=== PATIENT | female | born 1975 | race Caucasian/White ===

== ENCOUNTER 2022-07-31 20:15 | Emergency (ER) | payer OTHER, SELFPAY ==
[2022-07-31 20:22] VITALS: BP 125/76; PULSE 94; RESP 16; TEMP 37.1; O2SAT 98
--- NOTE | 2022-07-31 22:01 | ED.GENADUL_ITS ---
Discharge Plan Disposition Patient Disposition: Home Discharge Details Chief Complaint: Laceration Clinical Impression: Finger laceration Primary Care Provider: Vincent Kay ED Provider: Laith Gonzalez Home Meds and New Rx's Prescriptions: No Action bupropion HCl 150 MG tablet extended release 24 hr 150 mg PO BID sumatriptan succinate [Imitrex] 50 MG tablet 50 mg PO DAILY PRN (Reason: Headache) Patient Comments: 03/06/2013: has not been taking. Med [place] [facility] [place]: Imitrex 50mg oral q8 PRN, Max dose in 24hours 200mg bisacodyl 10 MG suppository 10 mg RC DAILY PRN (Reason: Constipation) esomeprazole magnesium [Nexium] 40 MG capsule,delayed release(DR/EC) 40 mg PO DAILY@0730 loratadine 10 MG tablet 10 mg PO DAILY phenol [Cepastat] 14.5 MG lozenge 14.5 mg PO Q3H PRN acetaminophen [Tylenol] 325 MG tablet 650 mg PO Q4H Patient Comments: 03/06/2013: [facility] [place] medication sheet as med ordered as: 1000 mg po q8 hours scheduled. gabapentin [Neurontin] 400 MG capsule 800 mg PO HS Qty: 30 0RF gabapentin [Neurontin] 400 MG capsule 400 mg PO BID@0800,1200 Qty: 60 0RF citalopram 20 MG tablet 20 mg PO DAILY Qty: 30 0RF oxycodone 5 MG tablet 5 mg PO Q6H PRN PRNQty: 120 0RF enoxaparin [Lovenox] 40 MG/0.4 ML syringe 40 mg Sub-Q Q24H Qty: 30 0RF polyethylene glycol 3350 17 GM powder in packet 17 g PO DAILY PRNQty: 30 0RF sennosides-docusate sodium [Senna with Docusate Sodium] 1 EACH tablet 1 - 4 ea PO BID Qty: 240 0RF diltiazem HCl [Cardizem] 60 MG tablet 60 mg PO BID Qty: 60 0RF diazepam [Valium] 5 MG tablet 5 mg PO Q6H PRN (Reason: Anxiety) Qty: 120 0RF oxycodone [OxyContin] 10 MG tablet,oral only,ext.rel.12 hr 10 mg PO BID Qty: 60 0RF hydrocodone-chlorpheniramine 1 ML suspension,extended rel 12 hr 5 ml PO BID PRN PRNQty: 60 0RF prednisone 20 MG tablet 40 mg PO DAILY Qty: 10 0RF levofloxacin 750 MG tablet 750 mg PO DAILY 7 Days 0RF metronidazole 500 MG tablet 500 mg PO TID 7 Days 0RF ondansetron 4 MG tablet,disintegrating 4 mg PO Q8H PRN PRNQty: 20 0RF oxycodone-acetaminophen 1 TAB tablet 1 tab PO Q6H PRN PRNQty: 7 0RF Discharge Instructions Instructions: Finger Laceration (ED) Additional Instructions: Please keep wound clean and dry. Please return to the emergency department for any worsening symptoms Medical Decision Making 47-year-old female sustained laceration to distal aspect of left index finger cutting a cooked ham, hemostatic no foreign body, clean linear, neurovascular exam of limb intact, tendon exam intact with full flexion and extension, wound as open up when fingers flexed for this reason I will anesthetize with ring block and closed primarily with simple interrupted observable sutures. No evidence of neurovascular injury or tendon involvement. Given clean knife and cooked meat will not initiate empiric antibiotics will give return precautions for infectious symptoms 22: 48 patient resting comfortably no acute distress. Wound anesthetized and cleaned thoroughly with sterile normal saline, 3 x 4-0 Vicryl simple interrupted sutures and Steri-Strips applied to wound. Wound care instructions and return precautions given HPI General Date/Time Provider Initiated Documentation: 07/31/22 20:38 . HPI Narrative: 47-year-old female presents after sustaining a laceration to her left index finger while cutting a cooked ham with a knife. Pain and bleeding to distal aspect of finger. Patient believes her last tetanus booster was 8 to 9 years ago Related Data Home Medications Medication Instructions Recorded Confirmed bupropion HCl 150 mg 24 hr tablet, 150 mg PO BID 02/13/13 03/06/13 extended release sumatriptan succinate 50 mg tablet 50 mg PO DAILY PRN Headache 02/13/13 03/06/13 (Imitrex) bisacodyl 10 mg rectal suppository 10 mg RC DAILY PRN Constipation 02/22/13 03/06/13 esomeprazole magnesium 40 mg 40 mg PO DAILY@0730 02/22/13 03/06/13 capsule,delayed release (Nexium) loratadine 10 mg tablet 10 mg PO DAILY 02/22/13 03/06/13 phenol 14.5 mg lozenges (Cepastat) 14.5 mg PO Q3H PRN 02/22/13 03/06/13 acetaminophen 325 mg tablet 650 mg PO Q4H 02/23/13 03/06/13 (Tylenol) citalopram 20 mg tablet 20 mg PO DAILY ##30 03/15/13 diazepam 5 mg tablet (Valium) 5 mg PO Q6H PRN Anxiety ##120 03/15/13 diltiazem HCl 60 mg tablet 60 mg PO BID ##60 03/15/13 (Cardizem) enoxaparin 40 mg/0.4 mL 40 mg (0.4 mL) subcut Q24H ##30 03/15/13 subcutaneous syringe (Lovenox) gabapentin 400 mg capsule 400 mg PO BID@0800,1200 ##60 03/15/13 (Neurontin) gabapentin 400 mg capsule 800 mg PO HS ##30 03/15/13 (Neurontin) oxycodone 10 mg tablet,crush 10 mg PO BID ##60 03/15/13 resistant,extended release 12 hr (OxyContin) oxycodone 5 mg tablet 5 mg PO Q6H PRN PRN ##120 03/15/13 polyethylene glycol 3350 17 gram 17 g PO DAILY PRN ##30 03/15/13 oral powder packet sennosides 8.6 mg-docusate sodium 1 - 4 ea PO BID ##240 03/15/13 50 mg tablet (Senna with Docusate Sodium) hydrocodone 10 mg-chlorpheniramine 5 ml PO BID PRN PRN #60 mL 01/09/16 8 mg/5 mL oral susp extend.rel 12hr prednisone 20 mg tablet 40 mg PO DAILY ##10 01/09/16 levofloxacin 750 mg tablet 750 mg PO DAILY 7 days 02/19/16 metronidazole 500 mg tablet 500 mg PO TID 7 days 02/19/16 ondansetron 4 mg disintegrating 4 mg PO Q8H PRN PRN ##20 02/19/16 tablet oxycodone-acetaminophen 5 mg-325 1 tab PO Q6H PRN PRN #7 tabs 02/19/16 mg tablet Previous Rx's Medication Instructions Recorded citalopram 20 mg tablet 20 mg PO DAILY ##30 03/15/13 diazepam 5 mg tablet (Valium) 5 mg PO Q6H PRN Anxiety ##120 03/15/13 diltiazem HCl 60 mg tablet 60 mg PO BID ##60 03/15/13 (Cardizem) enoxaparin 40 mg/0.4 mL 40 mg (0.4 mL) subcut Q24H ##30 03/15/13 subcutaneous syringe (Lovenox) gabapentin 400 mg capsule 400 mg PO BID@0800,1200 ##60 03/15/13 (Neurontin) gabapentin 400 mg capsule 800 mg PO HS ##30 03/15/13 (Neurontin) oxycodone 10 mg tablet,crush 10 mg PO BID ##60 03/15/13 resistant,extended release 12 hr (OxyContin) oxycodone 5 mg tablet 5 mg PO Q6H PRN PRN ##120 03/15/13 polyethylene glycol 3350 17 gram 17 g PO DAILY PRN ##30 03/15/13 oral powder packet sennosides 8.6 mg-docusate sodium 1 - 4 ea PO BID ##240 03/15/13 50 mg tablet (Senna with Docusate Sodium) hydrocodone 10 mg-chlorpheniramine 5 ml PO BID PRN PRN #60 mL 01/09/16 8 mg/5 mL oral susp extend.rel 12hr prednisone 20 mg tablet 40 mg PO DAILY ##10 01/09/16 levofloxacin 750 mg tablet 750 mg PO DAILY 7 days 02/19/16 metronidazole 500 mg tablet 500 mg PO TID 7 days 02/19/16 ondansetron 4 mg disintegrating 4 mg PO Q8H PRN PRN ##20 02/19/16 tablet oxycodone-acetaminophen 5 mg-325 1 tab PO Q6H PRN PRN #7 tabs 02/19/16 mg tablet Allergies Allergy/AdvReac Type Severity Reaction Status Date / Time No Known Allergies Allergy Unverified 07/31/22 20:29 General Stated Complaint: Laceration NAJMA: 4 Review of Systems Narrative: Review of Systems Constitutional: negative Eyes: negative ENT: negative Cardiovascular: negative Respiratory: negative Gastrointestinal: negative : negative Musculoskeletal: negative Skin: Finger laceration Neurologic: negative Psych: negative PFSH All Active Problems (Updated 07/31/22 @ 22:41 by Laith Gonzalez MD) Physical medicine and rehabilitation procedures (Acute) Aftercare for healing traumatic fracture (Acute) Bilateral sacral fracture. Finger laceration (Acute) Social History Smoking/Tobacco Use Status: Current every day Smoking risk assessment performed?: Yes Drug use: Never Do you feel safe in your relationship?: Yes Exam Narrative Exam Narrative: Physical Examination General: alert, awake, cooperative, resting comfortably, no acute distress Extremities: 2 cm linear clean laceration to ulnar aspect of second digit of left hand, nongaping, no nailbed involvement appreciated, flexion both proximal and distal intact, extension intact, sensation median radial and ulnar nerve distribution intact warm well perfused Course Vital Signs Vital signs: Vital Signs Temperature 37.1 C 07/31/22 20:22 Pulse 94 H 07/31/22 20:22 Respiratory Rate 16 07/31/22 20:22 Blood Pressure 125/76 07/31/22 20:22 Pulse Oximetry 98 07/31/22 20:22 Temperature 37.1 C 07/31/22 20:22 Pulse 94 H 07/31/22 20:22 Respiratory Rate 16 07/31/22 20:22 Respiratory Effort Normal 07/31/22 20:27 Blood Pressure 125/76 07/31/22 20:22 Blood Pressure Position Sitting 07/31/22 20:22 Pulse Oximetry 98 07/31/22 20:22 Oxygen Delivery Method Room Air 07/31/22 20:22 Oxygen Flow Rate 0 07/31/22 20:22 Pain Level 4 07/31/22 20:22
== END 2022-07-31 22:54 | disposition home or self-care (01) ==
PROVIDERS: Emergency Provider Emergency Medicine; PCP Specialist/Technologist Athletic Trainer
DX: S61.211A Laceration without foreign body of left index finger without damage to nail, initial encounter (principal); W26.0XXA Contact with knife, initial encounter
CPT/HCPCS: 12001

== ENCOUNTER 2023-10-02 12:52 | Outpatient (REF) | payer OTHER, SELFPAY ==
[2023-10-02 15:20] LABS: Absolute Basophil Count 0.02 10^3/uL (0.0-0.2); Absolute Eosinophil Count 0.11 10^3/uL (0.0-0.7); Absolute Lymphocyte Count 1.52 10^3/uL (1.2-3.4); Absolute Monocyte Count 0.29 10^3/uL (0.1-0.8); Absolute Neutrophil Count 4.45 10^3/uL (1.2-6.7); Basophils % 0.3 %; Eosinophils % 1.7 %; HCT 37.5 % (36.0-46.0); HGB 12.7 g/dL (11.2-15.7); Lymphocytes % 23.8 %; MCH 30.2 pg (27.0-33.0); MCHC 33.9 % (32.0-36.0); MCV 89 fL (80-95); MPV 9.7 fL (8.0-11.0); Monocytes % 4.5 %; Neutrophils % 69.7 %; Platelet Count 313 10^3/uL (130-400); RBC 4.21 10^6/uL (3.93-5.22); RDW 12.4 % (11.7-14.6); RDW-SD 40.2 fL; WBC 6.39 10^3/uL (4.4-10.8)
[2023-10-02 16:34] LABS: ALT 24 U/L (14-59); AST 16 U/L (15-37); Albumin 3.8 g/dL (3.4-5.0); Alkaline Phosphatase 84 U/L (46-116); Anion Gap 7.5 mmol/L (3-11); BUN 10 mg/dL (7-18); Bilirubin, Total 0.27 mg/dL (0.2-1.0); CO2 27.5 mmol/L (21.0-32.0); CREATININE 0.7 mg/dL (0.55-1.02); Calcium 8.8 mg/dL (8.5-10.1); Calculated LDL 112 mg/dL (<100); Chloride 104 mmol/L (98-107); Cholesterol 188 mg/dL (<200); Estimated GFR 107.95 (mL/min/1.73m2); Glucose 91 mg/dL (74-106); HDL Cholesterol 66 mg/dL (40-60); Potassium 3.8 mmol/L (3.5-5.1); Sodium 139 mmol/L (136-145); TSH (W/Ref FT4) 1.31 uIU/mL (0.36-3.74); Total Protein 7.6 g/dL (6.4-8.2); Triglyceride 52 mg/dL (<150); Vitamin D 25 Total 25.3 ng/mL (30-100)
[2023-10-02 17:52] LABS: Hemoglobin A1C 5.1 % (<5.7)
[2023-10-03 09:57] LABS: Hepatitis C Ab w Rflx HCV PCR Negative (Negative)
[2023-10-03 10:12] LABS: HIV-1/2 Ag & Ab Screen Negative (Negative)
== END 2023-10-02 12:53 | disposition home or self-care (01) ==
LOC: NCHCN 12:52
PROVIDERS: PCP Nurse Practitioner Family; Visit Provider Nurse Practitioner Family
DX: Z13.6 Encounter for screening for cardiovascular disorders (principal); F41.9 Anxiety disorder, unspecified; Z13.1 Encounter for screening for diabetes mellitus
CPT/HCPCS: 80053; 80061; 82306; 86803; 87389; 83036; 84443; 85025

== ENCOUNTER 2023-12-25 14:49 | Outpatient (REF) | payer MEDICARE, SELFPAY ==
--- NOTE | 2023-12-25 08:30 | PAPFT_PTH ---
PATIENT: Lindsey Walker LOC: [facility] U#:[id number] AGE/SX: 48/F ROOM: RE12/25/[address]: Allegra El : 1975 BED: DIS: 12/25/2023 SPEC #: [id number] RECD: 12/25/23 18:00 STATUS: ALEXIS REAlyssa #: [id number] ALFREDO: 12/25/23 08:[address]: Allegra El DEPT: [facility] Cytology RECD BY: Courtney Shelton Tissues: 1 - CX/ENDOCX FOR PAP SMEARS Procedures: PAP THIN PREP/UVM Screening HPV DNA PROBE Comments: [id number] (HPV 16 & 18/45)
--- OUTSIDE RECORDS SUMMARY | 2023-12-25 15:09 | XMS_ITS | Encounter Summary ---
Author Organization [facility] Address [facility] [place] [address] Care Team Providers Care Order Processing Manager Name Role Phone Norma Ortiz Primary Care Provider [phone]- [phone] Encounter Details Date Type Department Care Team (Late st Contact Info) Description 05/26/2013 External Results XRay at [address] [place] [address] Provider, Scanning Social History Tobacco Use Types Packs/Day Years Used Date Smoking Tobacco: Former Cigarettes Q uit: 03/04/1993 Smokeless Tobacco: Never Alcohol Use Standard Drinks/Week Comments No 0 (1 standard drink = 0.6 oz pur e alcohol) Sex and Gender Information Value Date Recorded Sex Assigned at Not on file Gender Identity Not on file Sexual Orientation Not on file documented as of this encounter Plan of Treatment Not on file documented as of this encounter Procedures Procedure Name Priority Date/Time Associated Diagnosis Comments DIAGNOSTIC RADIOLOGY SCAN Routine 05/23/2013 documented in this encounter Results * Scan Doc: Diagnostic Radiology (05/23/2013) Anatomical Region Laterality Modality Other Scanning Provider MEDIA MGR SCAN EXT O RDR/RSLT documented in this encounter Visit Diagnoses Not on filedocumented in this encounter Care Teams Order Processing Manager Relationship Specialty Start Date End Date Norma Ortiz CDE NUTRITION [address] [place] [address] PCP - General 03/11/13 06/13/13 documented as of this encounter
--- OUTSIDE RECORDS SUMMARY | 2023-12-25 15:09 | XMS_ITS | Continuity of Care Document ---
Author Organization [facility] Address [address] [place] [address] Care Team Providers Care Pharmacist Name Role Phone ANNE MARIEELISE TANK CLEANING SUPERVISOR-BC, ESTEFANIA Primary Care Physic anamika Encounter [facility] FIN NBR [id number] Date(s): 11/21/23 - 11/21/[address] [address] Discharge Disposition: Home Allergies, Adverse Reactions, Alerts Substance Criticality Severity Reaction Reaction Severity Status CeleXA Low criticality Mild Crying Acti ve Assessment and Plan Future Appointments Future Scheduled Tests Radiology* MG Mammo Screening Bilateral 11/07/23 * XR Barium Swallow 11/21/23 Immunizations Given and Recorded Vaccine Date Status Refusal Reason SARS-COV-2 (COVID-19) vaccine, unspecifi 12/25/20 Recorded SARS-COV-2 (COVID-19) vaccine, unspecifi 12/04/20 Recorded Td(adult) unspecified formulation 05/10/17 Recorde d Medications Abilify 2 mg oral tablet 2 mg = 1 tab, Oral, Daily, # 30 tab, 0 Refill(s) Start Date: 04/04/23 Status: Ordered amitriptyline 100 mg oral tablet 100 mg = 1 tab, Oral, every night at bedtime, 0 Refill(s) Start Date: 04/03/23 Status: Ordered cetirizine 10 mg =, Oral, Daily, 0 Refill(s) Start Date: 04/03/23 Status: Ordered escitalopram 20 mg =, Oral, Daily, 0 Refill(s) Start Date: 04/03/23 Status: Ordered gabapentin 300 mg oral capsule 300 mg = 1 cap, Oral, QID, 0 Refill(s) Start Date: 04/03/23 Status: Ordered pantoprazole 40 mg oral delayed release tablet 40 mg = 1 tab, Oral, Daily, # 30 tab, 0 Refill(s) Start Date: 11/21/23 Status: Ordered SUMAtriptan 100 mg oral tablet 100 mg = 1 tab, Oral, As Directed, 0 Refill(s) Start Date: 04/03/23 Status: Ordered traZODone 50 mg oral tablet 50 mg = 1 tab, Oral, TID, # 270 tab, 0 Refill(s) Start Date: 11/21/23 Status: Ordered Problem List Condition Confirmation Course Effective Dates Status Health Status Informant 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 Chronic constipation Confirmed Active Cyst of Bartholin's duct Confirmed Active Dysphagia Confirmed Active Family history of colon cancer in mother Confirmed Active Gastroesophageal reflux disease without esophagitis Confirmed Active Pyrosis Confirmed Active Pain in joint of right hip Confirmed Active Hyperpigmentation of skin Confirmed Active Other idiopathic peripheral autonomic neuropathy Confirmed Active Insomnia Confirmed Active Migraine Confirmed Active Obstructive sleep apnea Confirmed Active Open fracture of pelvis Confirmed Active Pain of right shoulder region Confirmed Active Palpitations Confirmed Active Encounter for routine adult health examination Confirmed Active Colon cancer screening Confirmed Active Procedures Procedure Date Related Diagnosis Body Site Status Laparoscopic Cholecystectomy 07/26/15 Completed Arthroscopy of Left shoulder 04/2010 Completed 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 2History of two hiatus hernia repair surgeries Social History Social History Type Response Tobacco Current everyday tob acco user Tobacco Use:. 35 year(s). Total pack years: 29. Started age 15.0 Years. Patient reports current use of electronic cigarettes Smokeless Tobacco use:. Previous treatment: Counseling. Sex Sex Representation Female (finding) Patient Care team information Care Team Personnel Name: ESTEFANIA DIAZ Position: No Access Member Role: Primary Care Physician Address: [address] [place] [address]- [place] Care Team Related Persons Name: TIFFANY ISLAS Insurance Providers Guarantor name: MUNDO ISLAS Health Plan Information #: 1 Payer: [employer] Real-Time Member Number: NA Policy Number: NA Health Plan Information #: 2 Payer: [facility] Member Number: NA Policy Number: NA
--- OUTSIDE RECORDS SUMMARY | 2023-12-25 15:09 | XMS_ITS | Encounter Summary ---
[place] [address] Care Team Providers Care Fuel Cell Technician Name Role Phone Norma Ortiz Primary Care Provider [phone]- [phone] Reason for Visit * Reason Onset Date Comments Medication Refill 05/17/2013 Encounter Details Date Type Department Care Team (Late st Contact Info) Description 05/17/2013 [place] [address] Howard Gil PA [address] [place] [address] Sacral pain (Primary Dx); Fatigue fracture of vertebra of sacral and sacrococcygeal region with routine healing Social History Tobacco Use Types Packs/Day Years Used Date Smoking Tobacco: Former Cigarettes Q uit: 03/04/1993 Smokeless Tobacco: Never Alcohol Use Standard Drinks/Week Comments No 0 (1 standard drink = 0.6 oz pur e alcohol) Sex and Gender Information Value Date Recorded Sex Assigned at Not on file Gender Identity Not on file Sexual Orientation Not on file documented as of this encounter Miscellaneous Notes * Telephone Encounter - Marina Alvarez RN - 05/17/2013 2:51 PM EST Telephone call Patient called to request refill on the OxyContin and Oxycodone. She saw her PCP today who is not going to pick out hand pain management. Plan last visit was to wean from the OxyContin 1 po bid x 2 weeks then 1 po daily for 2 weeks then stop. Her pharmacy ( [facility])would not accept the prescription as written and requested new rx for the 1 tablet once a day for 2 weeks, then stop portion. New rx done for the OxyContin and refill done for the Oxycodone. She will work to wean down on the Oxycontin and has had success with the Neurontin. Next RX Oxycodone will be for 80 pills for 7-10 days. documented in this encounter Plan of Treatment Not on file documented as of this encounter Visit Diagnoses Diagnosis Sacral pain- Primary Disorders of sacrum Fatigue fracture of vertebra of sacral and sacrococcygeal region with routine healing Other orthopedic aftercare documented in this encounter Care Teams Fuel Cell Technician Relationship Specialty Start Date End Date Norma Ortiz CDE NUTRITION [address] [place] [address] PCP - General 03/11/13 06/13/13 documented as of this encounter
--- OUTSIDE RECORDS SUMMARY | 2023-12-25 15:09 | XMS_ITS | Continuity of Care Document ---
Author Organization [facility] Address [address] [place] [address] Care Team Providers Care Glass Silverer Name Role Phone DARIAN FARIAS-BC, ESTEFANIA Primary Care Physic anamika Encounter [facility] FIN NBR [id number] Date(s): 09/05/23 - 09/05/23 [facility] [address] [place], [place] [address] Discharge Disposition: Home Allergies, Adverse Reactions, Alerts Substance Reaction Severity Status CeleXA Crying Mild Active Assessment and Plan Future Scheduled Tests Radiology* MRI Shoulder w/o Contrast Right 09/05/23 Medications Abilify 2 mg oral tablet 2 [...] 0 Refill(s) Start Date: 04/03/23 Status: Ordered omeprazole 40 mg oral delayed release capsule 40 mg = 1 cap, Oral, Daily, 0 Refill(s) Start Date: 04/03/23 Status: Ordered SUMAtriptan 100 mg oral tablet 100 mg = 1 tab, Oral, As Directed, 0 Refill(s) Start Date: 04/03/23 Status: Ordered Procedures Procedure Date Related Diagnosis Body Site Status Laparoscopic Cholecystectomy 07/26/15 Completed Arthroscopy of Left shoulder 04/2010 Completed 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 Previous treatment: Counseling. Sex Patient Care team information Care Team Personnel Name: ESTEFANIA DIAZ Position: No Access Member Role: Primary Care Physician Address: Address: [address] [place] [address]- Care Team Related Persons Name: TIFFANY ISLAS Address: Home
--- OUTSIDE RECORDS SUMMARY | 2023-12-25 15:09 | XMS_ITS | Continuity of Care Document ---
Author Organization [facility] Address [address] [place] [id number] Care Team Providers Care Regulatory Affairs Strategy Specialist Name Role Phone DARIAN AUTO SERVICE REPRESENTATIVE-BCESTEFANIA Primary Care Physic anamika Encounter [facility] FIN NBR [id number] Date(s): 04/04/23 - 04/04/[address] [address]- [place] Encounter Diagnosis Pain in right shoulder(Final) - Discharge Disposition: Home or Self Care Attending Physician: Radha Dougherty APRN Admitting Physician: Radha Dougherty APRN Referring Physician: Radha Dougherty APRN Allergies, Adverse Reactions, Alerts Substance Reaction Severity Status CeleXA Crying Mild Active Assessment and Plan Future Scheduled Tests Radiology* MRI Shoulder w/o Contrast Right 04/04/23 Medications Abilify 2 mg oral tablet 2 [...] 2History of two hiatus hernia repair surgeries Results Radiology Reports * Exam Date Time Procedure Performing Provider Status 04/04/23 9:01 AM XR Shoulder Complete 2+ Views Right Kevon Rhodes; David (Verified) Notes: (XR Shoulder Complete 2+ Views Right) Reason For Exam: Right shoulder pain XR Shoulder Complete 2+ Views Right EXAM DESCRIPTION: XR Shoulder Complete 2+ Views Right 04/04/2023 INDICATION: RIGHT SHOULDER PAIN COMPARISON: None FINDINGS: No acute fracture, dislocation or bone destructive process. Joint spaces are maintained. No radiographic foreign bodies are seen. IMPRESSION: 1. No acute fracture, dislocation or bone destructive process. JOB #: [id number] Final Signed by: Kiko Franco MD Signed (Electronic Signature): 04/04/2023 9:07 am Social History Social History Type Response Tobacco Current everyday tob acco user Tobacco Use:. 33 year(s). Total pack years: 29. Started age 15.0 Years. Patient reports current use of electronic cigarettes Smokeless Tobacco use:. Previous treatment: Counseling. Sex Patient Care team information Care Team Personnel Name: ESTEFANIA DIAZ Position: No Access Member Role: Primary Care Physician Address: Address: [facility] [address] [facility] [address] [place] [address]- Care Team Related Persons Name: TIFFANY ISLAS
--- OUTSIDE RECORDS SUMMARY | 2023-12-25 15:09 | XMS_ITS | Encounter Summary ---
Author Organization [facility] Address [facility] [place] [address] Care Team Providers Care Machine Zipper Trimmer Name Role Phone Norma Ortiz Primary Care Provider +1- [phone] Encounter Details Date Type Department Care Team (Late st Contact Info) Description 05/23/2013 Orders [place] [address] Yogesh Bender MD [facility] [place] [address] Social History Tobacco Use Types Packs/Day Years [...] as of this encounter Plan of Treatment Pending Results Name Type Priority Associated Diagnoses Date /Time Film Library- Storage only DX Lower Extremity Imaging Routine 05/23/19 14 8:49 AM EST documented as of this encounter Visit Diagnoses Not on filedocumented in this encounter Care Teams Machine Zipper Trimmer Relationship Specialty Start Date End Date Norma Ortiz CDE [address] [address] PCP - General 03/11/13 06/13/13 documented as of this encounter
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
--- OUTSIDE RECORDS SUMMARY | 2023-12-25 15:09 | XMS_ITS | Encounter Summary ---
Author Organization [facility] [place] [address] Care Team Providers Care Traffic Maintenance Supervisor Name Role Phone Norma Ortiz Primary Care Provider [phone] Encounter Details Date Type Department Care Team (Late st Contact Info) Description 06/04/2013 Telephone [place] [id number] Yogesh Bender MD [facility] [place] [address] Social History Tobacco Use Types Packs/Day Years [...] encounter Miscellaneous Notes * Telephone Encounter - Mahnaz Mayberry LPN - 06/05/2013 3:21 PM EDT HERRERA Watts returned the call. He states that he has the faxed copies of the claims from 04/10/13 andfrom 05/27/13. I was unable to make any statements about the patient's medical condition after 04/08/13 because she chose not to come to her appt on 05/20/13. * Telephone Encounter - Mahnaz Mayberry LPN - 06/05/2013 12:55 PM EDT The patient's call was returned. She states that she has had multiple calls with someone in orthopedics, she cannot remember her name. The patient states that it was her idea to begin getting her narcotics from her PCP; however, her PCP would not prescribe them to her, and therefore she had to drive here to machine operator picker her medications a couple of Fridays ago. Additionally, she states that despite her best efforts she was never able to get the x-rays she asked for or the results of her x-rays. The patient is now unable to receive her short-term disability because she was told not to come to her appt on 05/20/13. She was assured that this issue will be resolved and was asked for the name and number of her short term disability agent, Kristofer Watts, fax [phone], client #[id number]. A message wasleft for Kristofer Watts to call and clarify the claim. * Telephone Encounter - Roxane Jeff - 06/05/2013 12:29 PM EDT Patient returned Wiliam's call, she would like a call back at [phone]. * Telephone Encounter - Mahnaz Mayberry LPN - 06/04/2013 9:41 AM EDT The patient's call was returned. Message left for the patient to call, and explain more clearly theissues she is having with disability and xrays. * Telephone Encounter - Roxane Jeff - 06/04/2013 9:29 AM EDT Patient called she would like to speak with Dr. Bender or nurse regarding the issues she is having with her disability and the xrays she had. She stated that she was told she did not have to come to 05/20/13 appointment and is upset that it now shows as a no show. She would like someone to call derrek to discuss. Please call [phone]. documented in this encounter Plan of Treatment Not on file documented as of this encounter Visit Diagnoses Not on filedocumented in this encounter Care Teams Traffic Maintenance Supervisor Relationship Specialty Start Date End Date Norma Ortiz, ADEN [address] [address] PCP - General 03/11/13 06/13/13 documented as of this encounter
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
--- OUTSIDE RECORDS SUMMARY | 2023-12-25 15:09 | XMS_ITS | Continuity of Care Document ---
Author Organization [facility] Ambulatory Clinics Address [address] [place] [address] Care Team Providers Care Irrigation Equipment Mechanic Name Role Phone ESTEFANIA DIAZ Primary Care Physic naamika Encounter [facility] NBR [id number] Date(s): 04/04/23 - 04/04/23 [facility] Ambulatory Clinics [address] [place] [address]- Encounter Diagnosis Injury of right rotator cuff(Discharge Diagnosis) - 04/04/23 Discharge Disposition: Home or Self Care Attending Physician: Radha Dougherty APRN Referring Physician: ESTEFANIA DIAZ Allergies, Adverse Reactions, Alerts Substance Reaction Severity [...] Most recent to oldest [Reference Range]: 1 Peripheral Pulse Rate [60-100 bpm] 70 bp m (04/04/23 9:10 AM) Blood Pressure [90-140/60-90 mmHg] 118/6 8mmHg (04/04/23 9:10 AM) Mean Arterial Pressure, Cuff [70-110 mmH g] 85 mmHg (04/04/23 9:10 AM) Weight 77.56 kg (04/04/23 9:10 AM) Weight Measured (lbs) 170.99 lb (04/04/23 9:10 AM) Weight Dosing 77.560 kg (04/04/23 9:10 AM) Height 177.80 cm (04/04/23 9:10 AM) Height/Length Measured (inches) 70 inch (04/04/23 9:10 AM) BSA Measured 1.96 m2 (04/04/23 9:10 AM) Body Mass Index 24.53 kg/m2 (04/04/23 9:10 AM) Social History Social History Type Response Tobacco Current everyday tob acco user Tobacco Use:. 33 year(s). Total pack years: 29. Started age 15.0 Years. Patient reports current use of electronic cigarettes Smokeless Tobacco use:. Previous treatment: Counseling. Sex Physician Outpatient Note * Radha Dougherty, SUPERVISOR OF OFFICIALS: PERFORM Event Display: Office Clinic Note Physician Authored Date: [id number] MUNDO ISLAS :1975 Age:47 years Sex:Female Visit Date:04/04/2023 Primary Care Physician: ESTEFANIA DIAZ Chief Complaint Right shoulder pain History of Present Illness Mundo is a very pleasant 47 year old female who presents for evaluation of chronic right shoulder pain. She states 13 years ago she had a slip and fall resulting in bilateral shoulder pain. Her left shoulder had a subsequent RTC repair by Dr. Damon with plans for right shoulder intervention that never happened. Since that time she has had continued pain with weakness and decreased ROM most severely progressed without new injury over the past year. She can no longer lift a gallon of milk. She has been on crutches since 2014, but now only uses a crutch on the left. She takes Tylenol and ibuprofen daily without relief. She is right hand dominant. Review of Systems Constitutional:?No??fevers,?No??chills,?No??sweats Respiratory:?No??shortness of breath,?No??cough Cardiovascular:?No??Chest pain,?No??palpitations,?No??syncope Gastrointestinal:?Nonausea,?No??vomiting,?No??diarrhea Hernandez/Lymph:?No??bruising tendency,?No??swollen lymph glands Musculoskeletal:??No??back pain,??No??neck pain,??Positive for??joint pain,??No??muscle pain,??No??decreased range of motion Integumentary:?No??rash,?No??pruritus,?No??abrasions Neurologic: Alert & oriented X 4 Physical Exam Vitals & Measurements HR:??70??(Peripheral)?? BP:??118/68?? SpO2:??98%?? HT:??177.80??cm?? WT:??77.56??kg?? BMI:??24.53?? Pain Score:??7?? BSA:??1.96?? The patient is well dressed, well groomed and appearing stated age in NAD. Focused examination of the right shoulder is without gross deformity, skin is intact. There is no tenderness to palpation. Both active and passive ROM are to 90 degrees in forward flexion and abduction. IR with thumb to pantline. Cross body with difficulty. Belly press with pain. Impingement signs positive. Shaw's lift off with weakness and pain. Arm compartments soft and non tender. Elbow ROM is full and painless. RUE is neurovascularly intact. Assessment/Plan 1.??Injury of right rotator cuff??S46.001A Mundo presents thirteen years after a right rotator cuff injury that has progressively worsened.She states she believes she had an MRI at that time and was advised to have surgery which she optednot to. We reviewed x-ray's together today for better understanding of anatomy. We discussed treatment options of CSI which she is unwilling to do related to poor experience and adverse reaction on contralateral side, PT which she is unable to do at this point because [place] [employer] She reasonably opts for MRI which we will obtain and we will review together to discuss potential surgical options. All questions are answered prior to appointment end and Matilda is encouraged to contact the office at any time with questions or needs. Problem List/Past Medical History Ongoing Tobacco user Historical No qualifying data Procedure/Surgical History ???Laparoscopic Cholecystectomy (07/27/2015)???Arthroscopy of Left [...] capsule, 300 mg= 1 cap, Oral, QID omeprazole 40 mg oral delayed release capsule, 40 mg= 1 cap, Oral, Daily SUMAtriptan 100 mg oral tablet, 100 mg= 1 tab, Oral, As Directed Allergies CeleXA??(Crying) Social History Alcohol Current, Wine, Daily, Average drinks per day: 1. Electronic Cigarette/Vaping Electronic Cigarette Use: Use, within last 90 days. Home/Environment Lives with Children, Father, Mother, Spouse. Living situation: Home/Independent.- Comments: Both elderly parents living with patient leading to increased stress and troubles sleeping Substance Use Never Tobacco Current everyday tobacco user Tobacco Use:. 33 year(s). Total pack years: 29. Started age 15.0 Years. Patient reports current use of electronic cigarettes Smokeless Tobacco use:. Previous treatment: Counseling. Diagnostic Results Diagnostic Study Interpretation: Images from today are personally reviewed on the [facility] system to reveal no obvious fracture, dislocation or abnormality. Joint spaces well maintained. Electronically Signed on 04/04/23 11:04 AM Radha Dougherty APRN Patient Care team information Care Team Personnel Name: ESTEFANIA DIAZ Position: No Access Member Role: Primary Care Physician Address: Address: [address] [place] [address]- Care Team Related Persons Name: TIFFANY ISLAS
--- OUTSIDE RECORDS SUMMARY | 2023-12-25 15:09 | XMS_ITS | Continuity of Care Document ---
Author Organization [facility] Ambulatory Clinics Address [address] [place] [address] Care Team Providers Care Box Printer Name Role Phone [employer]WORK INFRA[employer]URE ARCHITECT-BC, ESTEFANIA Primary Care Physic anamika Encounter [facility] NBR [id number] Date(s): 04/04/23 - 04/04/23 [facility] Ambulatory Clinics [address] [place], [place] [address] Discharge Disposition: Home Allergies, [...] Member Role: Primary Care Physician Address: Address: [address] [place] [address]- Care Team Related Persons Name: TIFFANY ISLAS
--- OUTSIDE RECORDS SUMMARY | 2023-12-25 15:10 | XMS_ITS | Encounter Summary ---
Author Organization [facility] Address [facility] [place] [address] Care Team Providers Care Prepress Operator Name Role Phone Norma Ortiz Primary Care Provider +1- [phone] Encounter Details Date Type Department Care Team (Late st Contact Info) Description 05/13/2013 [place] [phone] Yogesh Bender MD [facility] [place] [address] Social History Tobacco Use Types Packs/Day Years [...] Telephone Encounter - Mahnaz Mayberry LPN - 05/13/2013 2:34 PM EST Multiple calls made to patient. Call goes immediately to voicemail, unable to leave message. The patient called last week wanted to know the results of her left ankle/left foot x-rays. After discussion with Dr. Bender, the x-rays are negative. The patient will be seen next week, 05/20/13. documented in this encounter Plan of Treatment Not on file documented as of this encounter Visit Diagnoses Not on filedocumented in this encounter Care Teams Prepress Operator Relationship Specialty Start Date End Date Norma Ortiz CDE [facility] [address] [place] [address] PCP - General 03/11/13 06/13/13 documented as of this encounter
--- OUTSIDE RECORDS SUMMARY | 2023-12-25 15:10 | XMS_ITS | Encounter Summary ---
Author Organization [facility] Address [facility] [place] [address] Care Team Providers Care Power Shovel Mechanic Name Role Phone Norma Ortiz Primary Care Provider +1- [phone] Encounter Details Date Type Department Care Team (Late st Contact Info) Description 04/11/2013 Orders [place] [address] Yogesh Bender MD [facility] [place] [address] Social History Tobacco Use Types Packs/Day Years [...] on filedocumented in this encounter Care Teams Power Shovel Mechanic Relationship Specialty Start Date End Date Norma Ortiz CDE [facility] [address] [place] [address] PCP - General 03/11/13 06/13/13 documented as of this encounter
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
--- OUTSIDE RECORDS SUMMARY | 2023-12-25 15:10 | XMS_ITS | Encounter Summary ---
Author Organization [facility] Address [facility] [place] [address] Care Team Providers Care Shortage Worker Name Role Phone Norma Ortiz Primary Care Provider +1- [phone] Encounter Details Date Type Department Care Team (Late st Contact Info) Description 04/11/2013 Telephone [place] [phone] Yogesh Bender MD [facility] [place] [address] Social History Tobacco Use Types Packs/Day Years [...] Telephone Encounter - Mahnaz Mayberry LPN - 04/11/2013 3:07 PM EST The patient called requesting a refill of her oxycodone and oxycontin. The message was passed to Dr. Bender. The patient was informed that the refill would have to be sent to her and may not be sent until late today or tomorrow. documented in this encounter Plan of Treatment Not on file documented as of this encounter Visit Diagnoses Not on filedocumented in this encounter Care Teams Shortage Worker Relationship Specialty Start Date End Date Norma Ortiz CDE [place] [id number] PCP - General 03/11/13 06/13/13 documented as of this encounter
--- OUTSIDE RECORDS SUMMARY | 2023-12-25 15:10 | XMS_ITS | Encounter Summary ---
Author Organization [facility] Address [facility] [place] [address] Care Team Providers Care Coffee Break Attendant Name Role Phone Norma Ortiz Primary Care Provider +1- [phone] Reason for Visit * Reason Onset Date Comments Medication Problem 05/15/2013 Needs new scr ipt. Encounter Details Date Type Department Care Team (Late st Contact Info) Description 05/15/2013 [place] [address] Yogesh Bender MD [facility] [place] [address] Social History Tobacco Use Types Packs/Day Years [...] encounter Miscellaneous Notes * Telephone Encounter - Caryl Lezama RN - 05/15/2013 3:06 PM EST Per discussion with Marina Alvarez RN who consulted with Dr Bender,patient will have left ankle,left foot.left pelvis at [facility] in [place], [place]. Orders have been faxed with instruction to have [place] [facility] Patient also aware that Dr Bender will call her after he has views those xray's . Patient aware. She will also approach her primary careprovider for any additional pain medication. She indicated that when she went to fill recent scriptthey only had half the number and would require an additional script to fulfill the remainder. At that point she decided to approach her PCP which is felt to be most appropriate. * Telephone Encounter - Cristy Ceballos - 05/15/2013 2:09 PM EST Lindsey is calling and can be reached back on her Gera's phone of [phone], the only working phone and she said if he answers we may speak to him. The Oxycodone prescription given (for the one pill twice a day to wean off )could not be honored at the pharmacy that was given to her and she needs a new prescription. She said she was also suppose to hear back on Monday about her xray results and needs to know because the home health physical therapist can't go forward until theyknow. I acknowledged that an attempt was made to call her. She doesn't want to wait until her appointment for the new prescription she said if it is put in the mail it will get there for the weekend. documented in this encounter Plan of Treatment Not on file documented as of this encounter Visit Diagnoses Not on filedocumented in this encounter Care Teams Coffee Break Attendant Relationship Specialty Start Date End Date Norma Ortiz CDE [facility] [address] [place] [address] PCP - General 03/11/13 06/13/13 documented as of this encounter
--- OUTSIDE RECORDS SUMMARY | 2023-12-25 15:10 | XMS_ITS | Encounter Summary ---
Author Organization [facility] Address [facility] [place] [address] Care Team Providers Care Hop Strainer Name Role Phone Norma Ortiz Primary Care Provider +1- [phone] Encounter Details Date Type Department Care Team (Late st Contact Info) Description 04/11/2013 Orders [place] [address] Yogesh Bender MD [facility] [place] [address] Sacral fracture, closed, initial encounter (Primary Dx) Social History Tobacco Use Types Packs/Day Years [...] of this encounter Visit Diagnoses Diagnosis Sacral fracture, closed, initial encounter- Primary documented in this encounter Care Teams Hop Strainer Relationship Specialty Start Date End Date Norma Ortiz CDE [address] [address] PCP - General 03/11/13 06/13/13 documented as of this encounter
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
--- OUTSIDE RECORDS SUMMARY | 2023-12-25 15:10 | XMS_ITS | Encounter Summary ---
Author Organization [facility] Address [facility] [place] [address] Care Team Providers Care Iron Assorter Name Role Phone Norma Ortiz Primary Care Provider +1- [phone] Reason for Visit * Reason Onset Date Comments Results 05/06/2013 xray results [facility]. Encounter Details Date Type Department Care Team (Late st Contact Info) Description 05/06/2013 Telephone [place] [address] Yogesh Bender MD [facility] [place] [address] Results (xray results from [facility] Social History Tobacco Use Types Packs/Day Years [...] Telephone Encounter - Mahnaz Mayberry LPN - 05/07/2013 8:48 AM EST The patient called again, and was informed that Dr. Bender will be gone for the week and will return her call in a few days. * Telephone Encounter - Mahnaz Mayberry LPN - 05/06/2013 2:22 PM EST Attempted to return the patient's call, her phone goes to [employer] and the mailbox is full. * Telephone Encounter - Cristy Ceballos - 05/06/2013 12:22 PM EST Lindsey said she is calling for xrays results. Please call her at her home number. documented in this encounter Plan of Treatment Not on file documented as of this encounter Visit Diagnoses Not on filedocumented in this encounter Care Teams Iron Assorter Relationship Specialty Start Date End Date Norma Ortiz CDE [address] [address] PCP - General 03/11/13 06/13/13 documented as of this encounter
--- OUTSIDE RECORDS SUMMARY | 2023-12-25 15:10 | XMS_ITS | Encounter Summary ---
Author Organization [facility] Address [facility] [place] [address] Care Team Providers Care Computer Lab Para Professional Name Role Phone Norma Ortiz Primary Care Provider +1- [phone] Encounter Details Date Type Department Care Team (Late st Contact Info) Description 05/17/2013 [place] [address] Yogesh Bender MD [facility] [place] [address] Social History Tobacco Use Types Packs/Day Years [...] encounter Miscellaneous Notes * Telephone Encounter - Jennifer Zarate - 05/17/2013 8:46 AM EST Patient's PCP Dr. Ortiz called wanting to speak with someone regarding this patient's medications. Dr. Bender isn't here today so I have asked the epitaxial reactor operator to page Marina for Dr. Ortiz as she's already been transferred a few different times from other departments. documented in this encounter Plan of Treatment Not on file documented as of this encounter Visit Diagnoses Not on filedocumented in this encounter Care Teams Computer Lab Para Professional Relationship Specialty Start Date End Date Norma Ortiz, [facility] [address] [place] [address] PCP - General 03/11/13 06/13/13 documented as of this encounter
--- OUTSIDE RECORDS SUMMARY | 2023-12-25 15:10 | XMS_ITS | Encounter Summary ---
Author Organization [facility] Address [facility] [place] [address] Care Team Providers Care Guest Relations Executive Name Role Phone Norma Ortiz Primary Care Provider +1- [phone] Encounter Details Date Type Department Care Team (Late st Contact Info) Description 04/11/2013 [place] [address] Yogesh Bender MD [facility] DR [place] [address] Social History Tobacco Use Types Packs/Day Years [...] Encounter - Mahnaz Mayberry LPN - 04/11/2013 9:57 AM EST Called patient's fiance and obtained patient's hgt and wgt, patient's phone number not taking messages and no answer. DME order written and faxed. * Telephone Encounter - Merna Deluca - 04/11/2013 9:33 AM EST Patient needs an order for Crutches. Please send this to [facility] at fax number [phone]. documented in this encounter Plan of Treatment Not on file documented as of this encounter Visit Diagnoses Not on filedocumented in this encounter Care Teams Guest Relations Executive Relationship Specialty Start Date End Date Norma Ortiz, HANNA[place] [address] [address] PCP - General 03/11/13 06/13/13 documented as of this encounter
--- OUTSIDE RECORDS SUMMARY | 2023-12-25 15:10 | XMS_ITS | Encounter Summary ---
Author Organization [facility] Address [facility] [place] [address] Care Team Providers Care Tool Honing Machine Set Up Operator Name Role Phone Norma Ortiz Primary Care Provider +1- [phone] Encounter Details Date Type Department Care Team (Late st Contact Info) Description 03/12/2013 External Results XRay at [address] [place] [address] Lois Lopez MD [address] [place], [place] [address] Social History Tobacco Use Types Packs/Day Years [...] Procedure Name Priority Date/Time Associated Diagnosis Comments MRI/MRA SCAN Routine 03/04/2013 documented in this encounter Results * Scan Doc: MRI/MRA (03/04/2013) Anatomical Region Laterality Modality Other Lois Lopez MD [facility] MGR SCAN EXT O RDR/RSLT documented in this encounter Visit Diagnoses Not on filedocumented in this encounter Care Teams Tool Honing Machine Set Up Operator Relationship Specialty Start Date End Date Norma Ortiz CDE [facility] [address] [facility] [place] [address] PCP - General 03/11/13 06/13/13 documented as of this encounter
--- OUTSIDE RECORDS SUMMARY | 2023-12-25 15:10 | XMS_ITS | Encounter Summary ---
Author Organization [facility] Address [facility] [place] [address] Care Team Providers Care Diversified Crops Supervisor Name Role Phone Norma Ortiz Primary Care Provider +1- [phone] Encounter Details Date Type Department Care Team (Late st Contact Info) Description 04/29/2013 Orders [place] [address] Yogesh Bender MD [facility] [place] [address] Social History Tobacco Use Types Packs/Day Years [...] Storage only DX Lower Extremity Imaging Routine 04/29/19 14 7:30 AM EST documented as of this encounter Visit Diagnoses Not on filedocumented in this encounter Care Teams Diversified Crops Supervisor Relationship Specialty Start Date End Date Norma Ortiz CDE [facility] [address] [place] [address] PCP - General 03/11/13 06/13/13 documented as of this encounter
--- OUTSIDE RECORDS SUMMARY | 2023-12-25 15:10 | XMS_ITS | Encounter Summary ---
[place] [address] Care Team Providers Care Spray Gun Operator Name Role Phone Norma Ortiz Primary Care Provider +1- [phone] Encounter Details Date Type Department Care Team (Late st Contact Info) Description 05/17/2013 Telephone [place] [address] Marina Alvarez, RN [facility] [facility] Social History Tobacco Use Types Packs/Day Years [...] Telephone Encounter - Mahnaz Mayberry LPN - 05/17/2013 2:15 PM EST Marina Alvarez RN, was informed of the message. She states that the patient's boyfriend is coming to filler picker the patient's Rx's. * Telephone Encounter - Jennifer Zarate - 05/17/2013 1:47 PM EST Patient called very upset because her prescription situation has not been figured out. She was toldby her doctor who spoke with a staff member here that we mailed her prescriptions out on 05/14/13. Matthew not see any record of this, or the call this morning. She is very upset because she doesn't wantto go through withdrawals this weekend. Her PCP refused to take over the medications we prescribe. Her concern is that it takes her an hour and a half to get here and it's 2 pm in the afternoon. She needs to know if she can filler picker these prescriptions today before we close. Please call her back at [phone]. documented in this encounter Plan of Treatment Not on file documented as of this encounter Visit Diagnoses Not on filedocumented in this encounter Care Teams Spray Gun Operator Relationship Specialty Start Date End Date Norma Ortiz CDE [address] [address] PCP - General 03/11/13 06/13/13 documented as of this encounter
--- OUTSIDE RECORDS SUMMARY | 2023-12-25 15:10 | XMS_ITS | Encounter Summary ---
Author Organization [facility] Address [facility] [place] [address] Care Team Providers Care Dietetics Director Name Role Phone Unknown Primary Care Provider Unavailabl e Encounter Details Date Type Department Care Team (Late st Contact Info) Description 03/04/2013 [place] [address] Yogesh Bender MD [facility] [place] [address] Social History Tobacco Use Types Packs/Day Years Used Date Smoking Tobacco: Light Smoker Cigarettes Smokeless Tobacco: Never Alcohol Use Standard Drinks/Week Comments Yes 0 (1 standard drink = 0.6 oz pur e alcohol) Sex and Gender Information Value Date Recorded Sex Assigned at Not on file Gender Identity Not on file Sexual Orientation Not on file documented as of this encounter Plan of Treatment Pending Results Name Type Priority Associated Diagnoses Date /Time Film Library- Storage only MR Pelvis Imaging Routine 03/04/2013 5:32 PM EST documented as of this encounter Visit Diagnoses Not on filedocumented in this encounter Care Teams Dietetics Director Relationship Specialty Start Date End Date Unknown None PCP - General 02/26/13 03/10/13 documented as of this encounter
--- OUTSIDE RECORDS SUMMARY | 2023-12-25 15:10 | XMS_ITS | Encounter Summary ---
Author Organization [facility] Address [facility] [address] Care Team Providers Care Integrity Assessor Name Role Phone Norma Ortiz Primary Care Provider +1- [phone] Encounter Details Date Type Department Care Team (Late st Contact Info) Description 04/29/2013 Telephone [place] [id number] Yogesh Bender MD [facility] [place] [address] Social History Tobacco Use Types Packs/Day Years [...] Telephone Encounter - Mahnaz Mayberry LPN - 04/29/2013 1:33 PM EST The patient's x-ray orders were faxed to [facility]. The patient was called and informed of the information. * Telephone Encounter - Marion Frey - 04/29/2013 12:29 PM EST Patient called to find out about some xrays that were done. Said she spoke with Wiliam last week. She can be reached at . Thank you. documented in this encounter Plan of Treatment Not on file documented as of this encounter Visit Diagnoses Not on filedocumented in this encounter Care Teams Integrity Assessor Relationship Specialty Start Date End Date Norma Ortiz, CDE [place] [id number] PCP - General 03/11/13 06/13/13 documented as of this encounter
--- OUTSIDE RECORDS SUMMARY | 2023-12-25 15:10 | XMS_ITS | Encounter Summary ---
Author Organization [facility] Address [facility] [place] [address] Care Team Providers Care Cleaning Team Member Name Role Phone Norma Ortiz Primary Care Provider +1- [phone] Encounter Details Date Type Department Care Team (Late st Contact Info) Description 04/30/2013 External Results [place] [id number] Yogesh Bender MD [facility] [place] [address] Social History Tobacco Use Types Packs/Day Years [...] Associated Diagnosis Comments DIAGNOSTIC RADIOLOGY SCAN Routine 04/30/2013 documented in this encounter Results * Scan Doc: Diagnostic Radiology (04/30/2013) Anatomical Region Laterality Modality Other Scanning Provider MEDIA MGR SCAN EXT O RDR/RSLT documented in this encounter Visit Diagnoses Not on filedocumented in this encounter Care Teams Cleaning Team Member Relationship Specialty Start Date End Date Norma Ortiz CDE [facility] [address] [place] [address] PCP - General 03/11/13 06/13/13 documented as of this encounter
--- OUTSIDE RECORDS SUMMARY | 2023-12-25 15:10 | XMS_ITS | Encounter Summary ---
Author Organization [facility] Address [facility] [place] [address] Care Team Providers Care Swimming Pool Installer Name Role Phone Norma Ortiz Primary Care Provider +1- [phone] Reason for Visit * Reason Onset Date Comments Follow-up 04/09/2013 Encounter Details Date Type Department Care Team (Late st Contact Info) Description 04/09/2013 Telephone [place] [address] Yogesh Bender MD [facility] [place] [address] Follow-up Social History Tobacco Use Types Packs/Day Years [...] encounter Miscellaneous Notes * Telephone Encounter - Stephanie Mercado - 04/11/2013 9:27 AM EST APPOINTMENT MADE LETTER SENT. * Telephone Encounter - Stephanie Mercado - 04/09/2013 12:51 PM EST I have called patient to call and schedule an appointment, the voicemail was full Patient needs f/u to her 04/08/13 appointment with xrays. Around 05/20/13 documented in this encounter Plan of Treatment Not on file documented as of this encounter Visit Diagnoses Not on filedocumented in this encounter Care Teams Swimming Pool Installer Relationship Specialty Start Date End Date Norma Ortiz CDE [address] [address] PCP - General 03/11/13 06/13/13 documented as of this encounter
--- OUTSIDE RECORDS SUMMARY | 2023-12-25 15:10 | XMS_ITS | Encounter Summary ---
Author Organization [facility]1983 Address [facility] [place] [address] Care Team Providers Care Cleaners Name Role Phone Norma Ortiz Primary Care Provider +1- [phone] Reason for Visit * Reason Onset Date Comments Medication Refill 04/11/2013 Encounter Details Date Type Department Care Team (Late st Contact Info) Description 04/11/2013 Refill [place] [address] Yogesh Bender MD [facility] [place] [address] Sacral pain (Primary Dx) Social History Tobacco Use Types [...] Encounter - Mahnaz Mayberry LPN - 04/11/2013 5:13 PM EST Refills of oxycodone and oxycontin sent to the patient via her request after speaking with Dr. Bender.Rx's printed and put in the mail. documented in this encounter Plan of Treatment Not on file documented as of this encounter Visit Diagnoses Diagnosis Sacral pain- Primary Disorders of sacrum documented in this encounter Care Teams Cleaners Relationship Specialty Start Date End Date Norma Ortiz CDE [address] [address] PCP - General 03/11/13 06/13/13 documented as of this encounter
--- OUTSIDE RECORDS SUMMARY | 2023-12-25 15:10 | XMS_ITS | Encounter Summary ---
Author Organization [facility] Address [facility] [place] [address] Care Team Providers Care Building And Grounds Supervisor Name Role Phone Norma Ortiz Primary Care Provider +1- [phone] Encounter Details Date Type Department Care Team (Late st Contact Info) Description 04/24/2013 Telephone [place] [phone] Yogesh Bender MD [facility] [place] [address] Social History Tobacco Use Types Packs/Day Years [...] Telephone Encounter - Mahnaz Mayberry LPN - 04/25/2013 9:00 AM EST The patient's call was returned after discussion with Dr. Bender. Her Oxycontin was refilled, 42 tablets, BID for 2 weeks, the QD for 2 weeks, continued 10mg tablets. Additionally, the patient states that she is having 10/10 pain in her left ankle and left foot. X-rays were ordered for left foot and ankle at [facility], per Dr. Bender. * Telephone Encounter - Jennifer Zarate - 04/24/2013 4:42 PM EST Patient called for a refill on her OxyContin 10 mg. Please mail to her home address. If questions please call her at [phone]. documented in this encounter Plan of Treatment Not on file documented as of this encounter Visit Diagnoses Not on filedocumented in this encounter Care Teams Building And Grounds Supervisor Relationship Specialty Start Date End Date Norma Ortiz, [place] [address] [address] PCP - General 03/11/13 06/13/13 documented as of this encounter
--- OUTSIDE RECORDS SUMMARY | 2023-12-25 15:10 | XMS_ITS | Encounter Summary ---
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 that the pediatric reference intervals supplied above were not validated at [facility]. Results from pediatric patients should be interpreted in conjunction to the patient's age, height and muscle mass. Est Glomerular Filtration Rate >60 >=60 [facility] Comment: This estimated GFR (eGFR) value was calculated using the MDRD equation which has been validated on patients between the ages of 18 and 70. The MDRD should not be used to assess kidney function in patients < 18 years of age or in patients with extremes of body mass, or in patients with acute kidney failure. This value should be multiplied by 1.2 for patients. For further information please copy and paste the following links into your internet browser. http://www.nkdep.nih.gov/lab-evaluation.shtml http://www.kidney.org/professionals/ Blood specimen (specimen) 03/04/2013 10:25 PM EST 03/04/2013 10:36 PM EST Narrative Resulting Agency Comment Spec In Lab Scott Sommers MD CHEMISTRY ORDERABLES [facility] * BUN (03/04/2013 10:25 PM EST) Blood Urea Nitrogen 11 8 - 18 mg/dL [facility] Blood specimen (specimen) 03/04/2013 10:25 PM EST 03/04/2013 10:36 PM EST Narrative Resulting Agency Comment Spec In Lab Scott Sommers MD CHEMISTRY ORDERABLES [facility] * Electrolytes panel (03/04/2013 10:25 PM EST) Sodium 137 135 - 145 mmol/L [facility] Potassium 3.9 3.5 - 5.0 mmol/L [facility] Comment: Please note: ??Patients with WBC >100,000 may have falsely elevated Potassium levels. ??For accurate Potassium quantification in these patients send serum separator tube (gold top) for subsequent determinations. ??Contact the Clinical Chemistry Laboratory if there are any questions. Chloride 99 98 - 107 mmol/L [facility] Carbon Dioxide 28 22 - 31 mmol/L [facility] Anion Gap 10 5 - 15 mmol/L [facility] Blood specimen (specimen) 03/04/2013 10:25 PM EST 03/04/2013 10:36 PM EST Narrative Resulting Agency Comment Spec In Lab Scott Sommers MD CHEMISTRY ORDERABLES Performing Organization Address [facility] Co de Phone Number [facility] * CBC (with Diff) (03/04/2013 10:25 PM EST) White Blood Cell 7.0 4.0 - 10.0 x10(3)/mcL [facility] Red Blood Cell 4.21 3.93 - 5.22 x10(6)/mcL [facility]ILL[facility] Hemoglobin 12.8 11.2 - 15.7 gm/dL [facility] Hematocrit 37.8 34.0 - 45.0 % [facility] MILLENNI[facility] Mean Cell Volume 89.8 79.0 - 94.0 fL [facility] MILLENNI[facility] Mean Cell Hemoglobin 30.4 26.6 - 32.2 pg [facility] MILLENNIUM Mean Cell Hemoglobin Concentration 33.9 32.0 - 36.5 gm/dL [facility]ERN[facility] MILLENNIUM Platelet 325 145 - 370 x10(3)/mcL [facility] MILLENNI[facility] RDW Standard Deviation 40.9 35.0 - 46.0 fL [facility] MILLENNI[facility] RDW coefficient of variation 12.7 10.9 - 14.4 % [facility] MILLENNI[facility] Mean Platelet Volume 9.0 9.0 - 12.0 fL [facility] Blood specimen (specimen) 03/04/2013 10:25 PM EST 03/04/2013 10:36 PM EST Narrative Resulting Agency Comment Spec In Lab Scott Sommers MD HEMATOLOGY ORDERABLE S Performing Organization Address [facility] Co de Phone Number [facility]IP[facility]OM[facility] documented in this encounter Visit Diagnoses Diagnosis Sacral fracture, closed- Primary Closed fracture of sacrum and coccyx without mention of spinal cord injury Sacral fracture, closed, with routine healing, subsequent encounter documented in this encounter Administered Medications Inactive Administered Medications - up to 3 most recent administrations Medication Order MAR Action Action Date Dose Rate Site acetaminophen (TYLENOL) tablet 1,000 mg 1,000 mg, Oral, EVERY 8 HOURS SCHEDULED, First dose on Mon03/05/13 at 0600, Until Discontinued, Maximum dose of acetaminophen is 4000 mg from all sources in 24 hours., Routine Given 03/06/2013 6:00 AM EST 1,000 mg Given by Other 03/05/2013 10:00 PM EST 1,000 mg buPROPion (WELLBUTRIN SR) SR tablet 150 mg 150 mg, Oral, 2 TIMES DAILY, First dose on Mon03/05/13 at 0900, Until Discontinued, Routine Given 03/06/2013 8:26 AM EST 150 mg Given 03/05/2013 8:25 PM EST 150 mg Given 03/05/2013 9:04 AM EST 150 mg diaZEPam (VALIUM) tablet 5 mg 5 mg, Oral, EVERY 6 HOURS PRN, Starting on Mon03/05/13 at 0208, Until Mon03/06/13 at 1358, Anxiety, spasm, Routine Given 03/06/2013 11:40 AM EST 5 mg Given 03/06/2013 3:10 AM EST 5 mg Given 03/05/2013 5:04 PM EST 5 mg DILTiazem (CARDIZEM) tablet 60 mg 60 mg, Oral, 2 TIMES DAILY, First dose on Mon03/05/13 at 0900, Until Discontinued, Routine Given 03/06/2013 8:2 7 AM EST 60 mg Given 03/05/2013 8:25 PM EST 60 mg Given 03/05/2013 9:00 AM EST 60 mg enoxaparin (LOVENOX) injection 40 mg 40 mg, Subcutaneous, DAILY, First dose on Mon03/05/13 at 0900, Until Discontinued, Routine Given 03/06/2013 8:3 0 AM EST 40 mg Given 03/05/2013 9:04 AM EST 40 mg esomeprazole (NEXIUM) capsule 40 mg 40 mg, Oral, DAILY, First dose on Mon03/05/13 at 0900, Until Discontinued, Routine Given 03/06/2013 8:26 AM EST 40 mg Given 03/05/2013 9:04 AM EST 40 mg gabapentin (NEURONTIN) capsule 300 mg 300 mg, Oral, 2 TIMES DAILY BEFORE MEALS, First dose on Mon03/05/13 at 0730, Until Discontinued, Routine Given 03/06/2013 8:28 AM EST 300 mg Given 03/05/2013 5:02 PM EST 300 mg Given 03/05/2013 9:04 AM EST 300 mg gabapentin (NEURONTIN) capsule 600 mg 600 mg, Oral, NIGHTLY, First dose on Mon03/05/13 at 2100, Until Discontinued, Routine Given 03/05/2013 8:2 5 PM EST 600 mg loratadine (CLARITIN) tablet 10 mg 10 mg, Oral, DAILY, First dose on Mon03/05/13 at 0900, Until Discontinued Given 03/06/2013 8:28 AM EST 10 mg Given 03/05/2013 9:04 AM EST 10 mg LORazepam (ATIVAN) injection 0.5 mg 0.5 mg, Intravenous, ONCE, 1 dose, On Mon03/05/13 at 0030, For MRI, Routine Given 03/05/2013 12:30 AM EST 0.5 mg Righ t Arm multivitamin Nxns-Bo-YW-Min (THERAPEUTIC-M) 27-0.4 mg tablet 1 tablet 1 tablet, Oral, DAILY, First dose on Mon03/05/13 at 0900, Until Discontinued Given 03/06/2013 8:29 AM EST 1 tablet Given 03/05/2013 9:04 AM EST 1 tablet nicotine (NICODERM CQ) 14 mg/24 hr patch 14 mg 14 mg, Transdermal, Administer over 24 Hours, DAILY, First dose on Mon03/05/13 at 0900, Until Discontinued, Routine Given 03/05/2013 9:04 AM EST 14 mg OXYcodone (oxyCONTIN) CR tablet 20 mg 20 mg, Oral, 2 TIMES DAILY, First dose on Mon03/05/13 at 0900, Until Discontinued, Routine Given 03/06/2013 8:2 9 AM EST 20 mg Given 03/05/2013 8:25 PM EST 20 mg Given 03/05/2013 9:04 AM EST 20 mg OXYcodone (ROXICODONE) immediate release tablet 10 mg 10 mg, Oral, EVERY 3 HOURS PRN, Starting on Mon03/05/13 at 0208, Until Mon03/06/13 at 1358, Pain, moderate pain, For Moderate pain. Do not exceed 15 mg in 4 hours. If pain not relieved, call provider., Routine Given 03/06/2013 11:41 AM EST 10 mg Given 03/06/2013 8:23 AM EST 10 mg Given 03/06/2013 3:34 AM EST 10 mg senna-docusate (PERICOLACE) 8.6-50 mg per tablet 1-4 tablet 1-4 tablet, Oral, 2 TIMES DAILY, First dose on Mon03/05/13 at 0900, Until Discontinued, Start with 1 tablet or liquid equivalent orally twice daily and titrate up to achieve: 1. One bowel movement at least every 48 hours, AND 2. Without straining, Routine Given 03/06/2013 8:29 AM EST 2 tablets Given 03/05/2013 8:25 PM EST 2 tablets Given 03/05/2013 9:04 AM EST 2 tablets sodium chloride 0.9 % flush 5 mL 5 mL, Intravenous, EVERY 12 HOURS, First dose on Mon03/05/13 at 0230, Until Discontinued Given 03/06/2013 2:30 AM EST 5 mLs Given 03/05/2013 2:55 PM EST 5 mLs Given 03/05/2013 2:30 AM EST 5 mLs sodium chloride 0.9% infusion 1,000 mL, at 100 mL/hr, Intravenous, CONTINUOUS, Starting on Mon03/05/13 at 0230, Until Mon03/06/13 at 1358 New Bag 03/05/2013 2:30 AM EST 1,000 mL s 100 mL/hr documented in this encounter Active and Recently Administered Medications Times are shown in EST. Scheduled Medication Order 03/04/2013 03/05/2013 03/06/2013 acetaminophen (TYLENOL) tablet 1,000 mg 1,000 mg, Oral, EVERY 8 HOURS SCHEDULED, First dose on Mon03/05/13 at 0600, Until Discontinued, Maximum dose of acetaminophen is 4000 mg from all sources in 24 hours., Routine 0600 (Not Given - Provider: Kalyn Hicks RN - Reason: Patient not available)1455 (Not Given - Provider: Sara Roper RN - Reason: Patient/family refused)2200 (Given by Other - Provider: Douglas Hassan RN) 0600 (Given - Provider: Douglas Hassan RN) buPROPion (WELLBUTRIN SR) SR tablet 150 mg (CANCELED) 150 mg, Oral, 2 TIMES DAILY, First dose on Mon03/05/13 at 0900, Until Discontinued, Routine 0904 (Given - Provider: Sara Roper RN)2024 (Given - Provider: Dottie White RN) 08 (Given - Provider: Merna Ferrari RN) DILTiazem (CARDIZEM) tablet 60 mg (CANCELED) 60 mg, Oral, 2 TIMES DAILY, First dose on Mon03/05/13 at 0900, Until Discontinued, Routine 899 (Given - Provider: Sara Roper RN)2024 (Given - Provider: Dottie White RN) 826 (Given - Provider: Merna Ferrari, EBONY) enoxaparin (LOVENOX) injection 40 mg 40 mg, Subcutaneous, DAILY, First dose on Mon03/05/13 at 0900, Until Discontinued, Routine 903 (Given - Provider: Sara Roper RN) 829 (Given - Provider: Merna Ferrari RN) esomeprazole (NEXIUM) capsule 40 mg (CANCELED) 40 mg, Oral, DAILY, First dose on Mon03/05/13 at 0900, Until Discontinued, Routine 903 (Given - Provider: Sara Roper RN) 08 (Given - Provider: Merna Ferrari RN) gabapentin (NEURONTIN) capsule 300 mg (CANCELED) 300 mg, Oral, 2 TIMES DAILY BEFORE MEALS, First dose on Mon03/05/13 at 0730, Until Discontinued, Routine 903 (Given - Provider: Sara Roper RN)1701 (Given - Provider: Sara Roper RN) 827 (Given - Provider: Merna Ferrari RN) gabapentin (NEURONTIN) capsule 600 mg (CANCELED) 600 mg, Oral, NIGHTLY, First dose on Mon03/05/13 at 2100, Until Discontinued, Routine 2024 (Given - Provider: Dottie White RN) loratadine (CLARITIN) tablet 10 mg (CANCELED) 10 mg, Oral, DAILY, First dose on Mon03/05/13 at 0900, Until Discontinued 903 (Given - Provider: Sara Roper RN) 827 (Given - Provider: Merna Ferrari RN) LORazepam (ATIVAN) injection 0.5 mg (COMPLETED) 0.5 mg, Intravenous, ONCE, 1 dose, On Mon03/05/13 at 0030, For MRI, Routine 0030 (Given - Provider: Get Ochoa RN) multivitamin Mjtr-Aa-PM-Min (THERAPEUTIC-M) 27-0.4 mg tablet 1 tablet 1 tablet, Oral, DAILY, First dose on Mon03/05/13 at 0900, Until Discontinued 903 (Given - Provider: Sara Roper RN) 08 (Given - Provider: Merna Ferrari RN) nicotine (NICODERM CQ) 14 mg/24 hr patch 14 mg(Linked Group 1) 14 mg, Transdermal, Administer over 24 Hours, DAILY, First dose on Mon03/05/13 at 0900, Until Discontinued, Routine 903 (Given - Provider: Sara Roper RN) 0832 (Not Given - Provider: Merna Ferrari RN - Reason: Patient/family refused) OXYcodone (oxyCONTIN) CR tablet 20 mg 20 mg, Oral, 2 TIMES DAILY, First dose on Mon03/05/13 at 0900, Until Discontinued, Routine 903 (Given - Provider: Sara Roper RN)2024 (Given - Provider: Dottie White RN) 08 (Given - Provider: Merna Ferrari RN) polyethylene glycol (MIRALAX) packet 17 g 17 g, Oral, 2 TIMES DAILY, First dose on Mon03/05/13 at 0900, Until Discontinued, Administer if needed per patient's routine or if no bowel movement within 48 hours, Routine 903 (Not Given - Provider: Sara Roper RN - Reason: Patient/family refused)2100 (Not Given - Provider: Dottie White RN - Reason: Patient/family refused) 08 (Not Given - Provider: Merna Ferrari RN - Reason: Patient/family refused) senna-docusate (PERICOLACE) 8.6-50 mg per tablet 1-4 tablet 1-4 tablet, Oral, 2 TIMES DAILY, First dose on Mon03/05/13 at 0900, Until Discontinued, Start with 1 tablet or liquid equivalent orally twice daily and titrate up to achieve: 1. One bowel movement at least every 48 hours, AND 2. Without straining, Routine 903 (Given - Provider: Sara Roper RN)2024 (Given - Provider: Dottie White RN) 0829 (Given - Provider: Merna Ferrari, RN) sodium chloride 0.9 % flush 5 mL (CANCELED) 5 mL, Intravenous, EVERY 12 HOURS, First dose on Mon03/05/13 at 0230, Until Discontinued 0230 (Given - Provider: Kalyn Hicks, RN)1455 (Given - Provider: Sara Roper, RN) 0230 (Given - Provider: Douglas Hassan, RN) Continuous Medication Order 03/04/2013 03/05/2013 03/06/2013 sodium chloride 0.9% infusion (CANCELED) 1,000 mL, at 100 mL/hr, Intravenous, CONTINUOUS, Starting on Mon03/05/13 at 0230, Until Mon03/06/13 at 1358 0230 (New Bag - Provider: Kalyn Hicks, EBONY) PRN Medication Order 03/04/2013 03/05/2013 03/06/2013 diaZEPam (VALIUM) tablet 5 mg (CANCELED) 5 mg, Oral, EVERY 6 HOURS PRN, Starting on Mon03/05/13 at 0208, Until Mon03/06/13 at 1358, Anxiety, spasm, Routine 1704 (Given - Provider: Sara Roper, EBONY) 0310 (Given - Provider: Douglas Hassan, RN)1140 (Given - Provider: Merna Ferrari, EBONY) OXYcodone (ROXICODONE) immediate release tablet 10 mg (CANCELED)(Linked Group 2) 10 mg, Oral, EVERY 3 HOURS PRN, Starting on Mon03/05/13 at 0208, Until Mon03/06/13 at 1358, Pain, moderate pain, For Moderate pain. Do not exceed 15 mg in 4 hours. If pain not relieved, call provider., Routine 2022 (Given - Provider: Dotite White, EBONY)235 (Given - Provider: Maria De Jesus Musa RN) 0334 (Given - Provider: Douglas Hassan, RN)0823 (Given - Provider: Merna Ferrari, RN)1141 (Given - Provider: Merna Ferrari, RN) OXYcodone (ROXICODONE) immediate release tablet 5 mg(Linked Group 2) 5 mg, Oral, EVERY 3 HOURS PRN, Starting on Mon03/05/13 at 0208, Until Mon03/06/13 at 1358, Pain, mild pain, For Mild pain. Do not exceed 15 mg in 4 hours. If pain not relieved, call provider, Routine 2022 (See Alternative - Provider: Dottie White, EBONY)2356 (See Alternative - Provider: Maria De Jesus Musa, EBONY) 0334 (See Alternative - Provider: Douglas Hassan, RN)0823 (See Alternative - Provider: Merna Ferrari, RN)1141 (See Alternative - Provider: Merna Ferrari, RN) Linked Groups Order Group 1: nicotine (NICODERM CQ) 14 mg/24 hr patch 14 mgJump to med 14 mg, Transdermal, Administer over 24 Hours, DAILY, First dose on Mon03/05/13 at 0900, Until Discontinued, Routine And nicotine (NICODERM CQ) patch REMOVAL (CANCELED) Transdermal, DAILY, First dose on Mon03/06/13 at 0900, Until Discontinued, Remove Nicotine Patch Group 2: OXYcodone (ROXICODONE) immediate release tablet 5 mgJump to med 5 mg, Oral, EVERY 3 HOURS PRN, Starting on Mon03/05/13 at 0208, Until Mon03/06/13 at 1358, Pain, mild pain, For Mild pain. Do not exceed 15 mg in 4 hours. If pain not relieved, call provider, Routine Or OXYcodone (ROXICODONE) immediate release tablet 10 mg (CANCELED)Jump to med 10 mg, Oral, EVERY 3 HOURS PRN, Starting on Mon03/05/13 at 0208, Until Mon03/06/13 at 1358, Pain, moderate pain, For Moderate pain. Do not exceed 15 mg in 4 hours. If pain not relieved, call provider., Routine Or OXYcodone (ROXICODONE) immediate release tablet 15 mg (CANCELED) 15 mg, Oral, EVERY 3 HOURS PRN, Starting on Mon03/05/13 at 0208, Until Mon03/06/13 at 1358, Pain, severe pain, For severe pain. Do not exceed 15 mg in 4 hours. If pain not relieved, call provider., Routine documented in this encounter Care Teams Interventional Pain Physician Relationship Specialty Start Date End Date Unknown None PCP - General 02/26/13 03/10/13 documented as of this encounter
--- OUTSIDE RECORDS SUMMARY | 2023-12-25 15:10 | XMS_ITS | Encounter Summary ---
Author Organization [facility] Address [facility] [place] [address] Care Team Providers Care President Celebrity Acquistion Name Role Phone Norma Ortiz Primary Care Provider +1- [phone] Encounter Details Date Type Department Care Team (Late st Contact Info) Description 04/25/2013 Orders [place] [address] Yogesh Bender MD [facility] [place] [address] Left foot pain; Pain in joint of left ankle or foot Social History Tobacco Use Types Packs/Day Years [...] as of this encounter Visit Diagnoses Diagnosis Left foot pain Pain in limb Pain in joint of left ankle or foot Pain in joint, ankle and foot documented in this encounter Care Teams President Celebrity Acquistion Relationship Specialty Start Date End Date Norma Ortiz CDE [address] [address] PCP - General 03/11/13 06/13/13 documented as of this encounter
--- OUTSIDE RECORDS SUMMARY | 2023-12-25 15:10 | XMS_ITS | Encounter Summary ---
Author Organization [facility] Address [facility] [place] [address] Care Team Providers Care Facility Specialist Name Role Phone Norma Ortiz Primary Care Provider +1- [phone] Encounter Details Date Type Department Care Team (Latest Contact Info) Description 04/08/2013 12:52 PM EST - 04/08/2013 11:[address] [facility] Hospital Encounter XRay at [address] [place] [address] Sacral fracture Social History Tobacco Use Types Packs/Day Years [...] Sig Dispensed Refills Start Date End Date diaZEPam (VALIUM) 5 mg tabletIndications:Fatig ue fracture of vertebra of sacral and sacrococcygeal region with routine healing Take 1 tablet by mouth every 6 hours as needed for Anxiety (spasm). 30 tablet 0 04/08/2013 acetaminophen (TYLENOL) 325 mg tablet Take 650 [...] dose in 24 hours = 200mg). 03/06/2013 gabapentin (NEURONTIN) 400 mg capsuleIndications:Fati tri fracture of vertebra of sacral and sacrococcygeal region with routine healing Take 1 capsule by mouth 2 times daily. Take t capsule am and 2 capsules pm 90 capsule 0 04/08/2013 05/17/2013 OXYcodone (ROXICODONE) 5 mg immediate release tablet Take 15 mg by mouth every 4 hours as needed. 04/11/2013 OXYcodone (OXYCONTIN) 20 mg CR tablet Take 1 tablet by mouth 2 times daily. 03/06/2013 04/11/2013 documented as of this encounter Plan of Treatment Not on file documented as of this encounter Procedures Procedure Name Priority Date/Time Associated Diagnosis Comments XR PELVIS MIN 3 VIEWS Routine 04/08/2013 1:39 PM EST Sacral fracture documented in this encounter Results * XR pelvis complete minimum 3 view (04/08/2013 1:39 PM EST) Anatomical Region Laterality Modality Pelvis N/A Radiographic Tricia ging 04/08/2013 1:39 PM EST Narrative 04/08/2013 4:26 PM EST Examination PELVIS COMPLETE MINIMUM THREE VIEWS Clinical History s/p trauma, with pelvic fracture. Comparison CT 02/13/2013, pelvic radiographs 03/11/2013. Technique AP, inlet and outlet views of the pelvis. Findings No appreciable change in alignment of the bilateral sacral fractures which are difficult to clearly visualized. No new fracture. ??The SI joints and pubic symphysis appear congruent. ??Joint spaces are maintained. Procedure Note Douglas Braga MD - 04/08/2013 Examination PELVIS COMPLETE MINIMUM THREE VIEWS Clinical History s/p trauma, with pelvic fracture. Comparison CT 02/13/2013, pelvic radiographs 03/11/2013. Technique AP, inlet and outlet views of the pelvis. Findings No appreciable change in alignment of the bilateral sacral fractures whichare difficult to clearly visualized. No new fracture. The SI joints and pubic symphysis appear congruent. Joint spaces are maintained. Yogesh Bender MD IMG DX ORDERABLES documented in this encounter Visit Diagnoses Diagnosis Sacral fracture Closed fracture of sacrum and coccyx without mention of spinal cord injury documented in this encounter Care Teams Facility Specialist Relationship Specialty Start Date End Date Norma Ortiz CDE [facility] [address] [id number] PCP - General 03/11/13 06/13/13 documented as of this encounter
--- OUTSIDE RECORDS SUMMARY | 2023-12-25 15:10 | XMS_ITS | Encounter Summary ---
Author Organization [facility] [place] [address] Care Team Providers Care Locomotive Crane Operator Helper Name Role Phone Norma Ortiz Primary Care Provider +1- [phone] Encounter Details Date Type Department Care Team (Late st Contact Info) Description 03/04/2013 Telephone [place] [id number] Yogesh Bender MD [facility] [place] [address] Social History Tobacco Use Types Packs/Day Years [...] encounter Miscellaneous Notes * Telephone Encounter - Rosita Denson - 03/04/2013 4:11 PM EST Call hospital doctor pain is worsen muscle strength is weaken s2 spinal disnosis MRI done today. documented in this encounter Plan of Treatment Not on file documented as of this encounter Visit Diagnoses Not on filedocumented in this encounter Care Teams Locomotive Crane Operator Helper Relationship Specialty Start Date End Date Norma Ortiz CDE [facility] [address] [place] [id number] PCP - General 03/11/13 06/13/13 documented as of this encounter
--- OUTSIDE RECORDS SUMMARY | 2023-12-25 15:10 | XMS_ITS | Encounter Summary ---
Author Organization [facility] [place] [address] Care Team Providers Care Underliner Name Role Phone Norma Ortiz Primary Care Provider +1- [phone] Reason for Visit * Reason Onset Date Comments Medication Refill 04/11/2013 Encounter Details Date Type Department Care Team (Late st Contact Info) Description 04/11/2013 [place] [address] Yogesh Bender MD [facility] [place] [address] Social History Tobacco Use Types Packs/Day Years [...] encounter Miscellaneous Notes * Telephone Encounter - Cristy Ceballos - 04/11/2013 2:13 PM EST Please call patient at [phone] regarding new medication questions. documented in this encounter Plan of Treatment Not on file documented as of this encounter Visit Diagnoses Not on filedocumented in this encounter Care Teams Underliner Relationship Specialty Start Date End Date Norma Ortiz CDE [facility] [address] [place] [address] PCP - General 03/11/13 06/13/13 documented as of this encounter
--- OUTSIDE RECORDS SUMMARY | 2023-12-25 15:10 | XMS_ITS | Encounter Summary ---
Author Organization [facility] Address [facility] [place] [address] Care Team Providers Care V Belt Builder Name Role Phone Norma Ortiz Primary Care Provider +1- [phone] Encounter Details Date Type Department Care Team (Late st Contact Info) Description 04/25/2013 Orders [place] [address] Yogesh Bender MD [facility] [place] [address] Sacral pain (Primary Dx) Social History Tobacco [...] sacrum documented in this encounter Care Teams V Belt Builder Relationship Specialty Start Date End Date Norma Ortiz CDE [address] [address] PCP - General 03/11/13 06/13/13 documented as of this encounter
--- OUTSIDE RECORDS SUMMARY | 2023-12-25 15:11 | XMS_ITS | Encounter Summary ---
Author Organization [facility] Address [address] [place] [address] Care Team Providers Care Director Life Name Role Phone María Pires MD Primary Care Provider Sima vailable Encounter Details Date Type Department Care Team (Late st Contact Info) Description 10/02/2023 Lab Requisition [facility] Pathology & Laboratory Medicine - [address] [address] Outr Resulting Lab, Provider Social History Tobacco Use Types Packs/Day Years Used Date Smoking Tobacco: Former Cigarettes Q uit: 02/13/2013 Sex and Gender Information Value Date Recorded Sex Assigned at Not on file Gender Identity Not on file Sexual Orientation Not on file documented as of this encounter Plan of Treatment Not on file documented as of this encounter Procedures Procedure Name Priority Date/Time Associated Diagnosis Comments HIV 1/2 ANTIGEN AND ANTIBODY, 4TH GENERATION Routine 10/02/2023 9:15 EDT documented in this encounter Results * HIV 1/2 ANTIGEN AND ANTIBODY, 4TH GENERATION (10/02/2023 9:15 EDT) HIV 1 and 2 Antibody/p24 Antigen, 4th Generation Negative Negative 10/03/2023 10:[address] [facility] Comment:If acute HIV-1 infec tion is suspected in a high risk patient, submit plasma specimen for HIV-1 RNA quantitation test. Blood VENOUS BLOOD / Unknown 10/02/2023 9:15 EDT 10/02/2023 21:31 EDT Narrative [facility] - 10/03/2023 10:06 EDT Fourth Generation assay performed on the Siemens Centaur XPT. Provider Outr Resulting Lab IMMUNOLOGY A ND SEROLOGY ORDERABLES [facility] [address] [place] [id number] documented in this encounter Visit Diagnoses Not on filedocumented in this encounter Care Teams Director Life Relationship Specialty Start Date End Date María Pires MD PCP - General 01/27/11 documented as of this encounter
--- OUTSIDE RECORDS SUMMARY | 2023-12-25 15:11 | XMS_ITS | Encounter Summary ---
Author Organization [facility] Address [address] [place] [address] Care Team Providers Care Restaurant Bartender Name Role Phone María Pires MD Primary Care Provider Sima vailable Reason for Visit * Reason Onset Date Comments Medications Refill 11/04/2013 Encounter Details Date Type Department Care Team (Late st Contact Info) Description 11/04/2013 Refill [facility] Neurology [facility] [address] [place], [place] [phone] Mateo See MD [address] [place] [phone] Medications Refill Social History Tobacco Use Types Packs/Day Years [...] on filedocumented in this encounter Care Teams Restaurant Bartender Relationship Specialty Start Date End Date María Pires MD PCP - General 01/27/11 documented as of this encounter
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
--- OUTSIDE RECORDS SUMMARY | 2023-12-25 15:11 | XMS_ITS | Encounter Summary ---
Author Organization [facility] Address [address] [place] [address] Care Team Providers Care Customer Trainer Name Role Phone María Pires MD Primary Care Provider Sima vailable Encounter Details Date Type Department Care Team (Late st Contact Info) Description 10/02/2023 Lab Requisition [facility] Pathology & Laboratory Medicine - [address] [phone] Outr Resulting Lab, Provider Social History Tobacco [...] Procedure Name Priority Date/Time Associated Diagnosis Comments HEPATITIS C AB W REFLEX TO HCV RNA BY PCR Routine 10/02/2023 9:15 EDT documented in this encounter Results * HEPATITIS C AB W REFLEX TO HCV RNA BY PCR (10/02/2023 9:15 EDT) Hep C Antibody Negative Negative 10/03/2023 9:52 EDT [facility] Blood VENOUS BLOOD / Unknown 10/02/2023 9:15 EDT 10/02/2023 21:31 EDT Provider Outr Resulting Lab CHEMISTRY & BLOOD GAS ORDERABLES [facility] [address] [place] [phone] documented in this encounter Visit Diagnoses Not on filedocumented in this encounter Care Teams Customer Trainer Relationship Specialty Start Date End Date María Pires MD PCP - General 01/27/11 documented as of this encounter
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
--- OUTSIDE RECORDS SUMMARY | 2023-12-25 15:11 | XMS_ITS | Encounter Summary ---
Author Organization [facility] Address [address] [place] [address] Care Team Providers Care Terminal Superintendent Name Role Phone María Pires MD Primary Care Provider Sima vailable Reason for Visit * Reason Onset Date Comments Results 11/06/2013 MRI Encounter Details Date Type Department Care Team (Late st Contact Info) Description 11/06/2013 Telephone [facility] Neurology [facility] [address] [place] [address] Mateo See MD [address] [place] [phone] Results (MRI) Social History Tobacco Use Types Packs/Day Years Used Date Smoking Tobacco: Former Cigarettes Q uit: 02/13/2013 Sex and Gender Information Value Date Recorded Sex Assigned at Not on file Gender Identity Not on file Sexual Orientation Not on file documented as of this encounter Miscellaneous Notes * Telephone Encounter - Jina Ruano - 11/13/2013 1516 EDT Did you call this patient with her results of her MRI? * Telephone Encounter - Jina Ruano - 11/06/2013 9386 EDT PLEASE CALL PATIENT WITH MRI RESULTS. [phone] documented in this encounter Plan of Treatment Not on file documented as of this encounter Visit Diagnoses Not on filedocumented in this encounter Care Teams Terminal Superintendent Relationship Specialty Start Date End Date María Pires MD PCP - General 01/27/11 documented as of this encounter
--- OUTSIDE RECORDS SUMMARY | 2023-12-25 15:11 | XMS_ITS | Encounter Summary ---
Author Organization [facility] Address [address] [place] [address] Care Team Providers Care Junior Web Designer Name Role Phone Unavailable Primary Care Provider Unavailabl e Encounter Details Date Type Department Care Team (Late st Contact Info) Description 01/24/2011 Results Only [facility] Laboratory Services - [facility] ([facility]) [address] [place] [id number] Misael Villegas MD [address] [place] [phone] Social History Tobacco Use Types Packs/Day Years Used Date Smoking Tobacco: Never Assessed Sex and Gender Information Value Date Recorded Sex Assigned at Not on file Gender Identity Not on file Sexual Orientation Not on file documented as of this encounter Plan of Treatment Not on file documented as of this encounter Procedures Procedure Name Priority Date/Time Associated Diagnosis Comments SURGICAL PATHOLOGY Routine 01/24/2011 0:00 EDT documented in this encounter Results * SURGICAL PATHOLOGY (01/24/2011 0:00 EDT) Pathology Report: SURGICAL PATHOLOGY REPORT Reports generated via electronic interface contain original data; however they are lacking the format of the original report. Caution should be taken when reading/interpreti ng unformatted reports. Name: ? MUNDO HENNING ? Accession #: ? [id number] ? : ? 1975 (Age: 35) ??F ? Collect Date: ? 01/24/2011 ? Location: ? [facility] ? Receive Date: ? 01/25/2011 ? Provider: MISAEL VILLEGAS MD Copy to: ? Final Pathologic Diagnosis: A. ?Small bowel, duodenum, 2nd portion, biopsy: 1. ?Duodenal mucosa with no specific pathologic features. 2. ? Negative for histologic features of celiac sprue. B. ?Stomach, antrum, biopsy: 1. ?Chronic gastritis, mild. 2. ? No Helicobacter pylori-like microorganisms identified on H&E-stained sections. ?? C. ?Gastroesophageal junction, biopsies: 1. ?Columnar mucosa with mild chronic inflammation. ? - Negative for intestinal metaplasia. 2. ?Small fragment of squamous epithelium with no specific pathology features. ?? Document reviewed and electronically signed by: BERNARDINO SHARMA MD Report ??Date: 01/28/2011 07:53 By the signature above, the attending physician certifies that he/she has personally conducted a gross and/or microscopic examination of the described specimens and rendered or confirmed the above diagnosis. Specimen(s) Received: A. ?2nd portion duodenum B. ? Antrum C. ? [facility] Clinical History: ? GERD; clinical diagnosis code: 530.81, 787.1, 787.20 Gross Description: ? Received in formalin labelled Mundo Henning and 2nd portion duodenum is a tavarez-pink 0.6 x 0.2 x 0.2 cm soft tissue fragment. ??The specimen is entirely submitted as (A). Received in formalin labelled Mundo Henning and antrum is a tavarez-pink 0.2 x 0.2 x 0.2 cm soft tissue fragment. ??The specimen is entirely submitted as (B). Received in formalin labelled Mundo Henning and EGJ are two tavarez-pink irregular soft tissue fragments measuring 0.2 x 0.2 x 0.2 cm and 0.4 x 0.2 x 0.2 cm. ??The specimens are entirely submitted as (C). ??(Bianca Milner)/fabiola End of Report MARIZA KELSEY 01/24/2011 01/25/2011 16: 41 EDT Misael Villegas MD PATHOLOGY ORDERABLE S MARIZA KELSEY [address] [place] [address] documented in this encounter Visit Diagnoses Not on filedocumented in this encounter
--- OUTSIDE RECORDS SUMMARY | 2023-12-25 15:11 | XMS_ITS | Encounter Summary ---
Author Organization [facility] Address [facility] [place] [address] Care Team Providers Care Disintegrator Name Role Phone María Pires MD Primary Care Provider [phone] Encounter Details Date Type Department Care Team (Late st Contact Info) Description 02/13/2013 Orders Only [facility] [phone] Mann Hernandez MD [facility] [place] [address] Social History Tobacco Use Types Packs/Day Years Used Date Smoking Tobacco: Never Assessed Sex and Gender Information Value Date Recorded Sex Assigned at Not on file Gender Identity Not on file Sexual Orientation Not on file documented as of this encounter Plan of Treatment Not on file documented as of this encounter Visit Diagnoses Not on filedocumented in this encounter Care Teams Disintegrator Relationship Specialty Start Date End Date María Pires MD [facility]IC[facility] [address] [place] [phone] PCP - General 05/03/11 02/25/13 documented as of this encounter
--- OUTSIDE RECORDS SUMMARY | 2023-12-25 15:11 | XMS_ITS | Encounter Summary ---
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 3.93 - 5.22 x10(6)/mc L CERNER MILLENNIUM Hemoglobin 11.4 11.2 - 15.7 gm/dL CERNER MILLENNIUM Hematocrit 32.6(L) 34.0 - 45.0 % CERNER MILLENNIUM Mean Cell Volume 86.9 79.0 - 94.0 fL CERNER MILLENNIUM Mean Cell Hemoglobin 30.4 26.6 - 32.2 pg CERNER MILLENNIUM Mean Cell Hemoglobin Concentration 35.0 32.0 - 36.5 gm/dL CERNER MILLENNIUM Platelet 267 145 - 370 x10(3)/mc L CERNER MILLENNIUM RDW Standard Deviation 39.0 35.0 - 46.0 fL CERNER MILLENNIUM RDW coefficient of variation 12.2 10.9 - 14.4 % CERNER MILLENNIUM Mean Platelet Volume 9.6 9.0 - 12.0 fL CERNER MILLENNIUM Blood specimen (specimen) 02/19/2013 2:10 AM EST 02/19/2013 3:13 AM EST Narrative Resulting Agency Comment Spec In Lab Zahida Jones MD HEMATOLOGY ORDERABLE S Performing Organization Address City/[facility]/ZIP Co de Phone Number CJ MAYAIUM * XR pelvis complete minimum 3 view (02/18/2013 10:38 AM EST) Anatomical Region Laterality Modality Pelvis N/A Radiographic Tricia ging 02/18/2013 10:3 8 AM EST Narrative 02/18/2013 1:08 PM EST Examination PELVIS COMPLETE MINIMUM THREE VIEWS Clinical History please get AP, inlet, outlet views Comparison 02/14/2015. Technique Findings The patient has known bilateral sacral fractures which we see as interruptions in the sacral arches on today's study. These are very similar in appearance to on the patient's prior study. ??The sacroiliac joints are of normal width with no other associated fractures seen. Impression No change. Procedure Note Rhianna Pham MD - 02/18/2013 Examination PELVIS COMPLETE MINIMUM THREE VIEWS Clinical History please get AP, inlet, outlet views Comparison 02/14/2015. Technique Findings The patient has known bilateral sacral fractures which we see asinterruptions in the sacral arches on today's study. These are very similar inappearance to on the patient's prior study. The sacroiliac joints are of normal widthwith no other associated fractures seen. Impression No change. Sanjeev Wade MD IMG DX ORDERABLES * Duplex Study for DVT, Bilat legs (02/18/2013 9:21 AM EST) VB Text Report Department: Vascular Surgery Lab Patient: [id number] (LINDSEY GARLAND) CPT Code: 12893 ICD-9: 959.8 Referring Physician: SANJEEV WADE Indication: ? s/p multi trauma, sacral trauma ICD9 Diagnosis Code: 959.8 Findings: RIGHT: ??Patent common femoral vein and popliteal vein with spontaneous, respirophasic Doppler waveforms that respond normally to augmentation maneuvers. The common femoral vein, saphenofemoral junction, femoral vein through the thigh and popliteal vein are fully compressible. ??Patent posterior tibial and peroneal veins with no evidence of thrombus. * Mildly reduced phasicity in the Doppler waveforms may suggest a more proximal/central obstruction. LEFT: ??Patent common femoral vein and popliteal vein with spontaneous, respirophasic Doppler waveforms that respond normally to augmentation maneuvers. The common femoral vein, saphenofemoral junction, femoral vein through the thigh and popliteal vein are fully compressible. ??Patent posterior tibial and peroneal veins with no evidence of thrombus. * Mildly reduced phasicity in the Doppler waveforms may suggest a more proximal/central obstruction. Interpretation: RIGHT: ??No evidence of lower extremity deep venous thrombosis. ?? Mildly reduced phasicity in the Doppler waveforms may suggest a more proximal/central obstruction. Suggest a followup exam in 3-5 days. LEFT: ??No evidence of lower extremity deep venous thrombosis. ??Mildly reduced phasicity in the Doppler waveforms may suggest a more proximal/central obstruction. Suggest a followup exam in 3-5 days. Interpretation: RIGHT: No evidence of lower extremity deep venous thrombosis. Mildly reduced phasicity in the Doppler waveforms may suggest a more proximal/central obstruction. Suggest a followup exam in 3-5 days. LEFT: No evidence of lower extremity deep venous thrombosis. Mildly reduced phasicity in the Doppler waveforms may suggest a more proximal/central obstruction. Suggest a followup exam in 3-5 days. Electronically Signed by: LUC FERNANDEZ on 2013-02-20 01:00:10 PM VASCUBASE VB Text Report End of Report [facility]AS[facility] 02/18/2013 9:21 AM EST Sanjeev Wade MD VASCULAR ORDERABLES [facility] * (ABNORMAL) Differential, Automated (02/18/2013 2:50 AM EST) Neutrophil % 71.2(H) 34.0 - 71.0 % CERNER MILLENNIUM Neutrophil Absolute 4.75 1.50 - 6.30 x10(3)/mc L CERNER MILLENNIUM Lymph % 19.5 19.0 - 53.0 % CERNER MILLENNIUM Lymphocytes Abs 1.3 1.0 - 3.6 x10(3)/mc L CERNER MILLENNIUM Monocyte % 5.9 4.0 - 13.0 % CERNER MILLENNIUM Monocyte Abs 0.4 0.2 - 1.0 x10(3)/mc L CERNER MILLENNIUM Eos % 2.9 0.0 - 7.0 % CERNER MILLENNIUM Eosinophils Abs 0.2 0.0 - 0.5 x10(3)/mc L CERNER MILLENNIUM Basophil % 0.3 0.0 - 2.0 % CERNER MILLENNIUM Baso Absolute 0.0 0.0 - 0.2 x10(3)/mc L CERNER MILLENNIUM Immature Gran % 0.20 0.00 - 0.66 % CERNER MILLENNIUM Comment: Immature granulocytes(IG's)percentage and absolute count will include metamyelocytes, myelocytes, and promyelocytes. Blood smears from CBCs yielding IG's will be scanned manually for concordance. If this scan disagrees with the automated IG or if promyelocytes are noted, a manual differential will be performed. Immature Gran Absolute 0.01 0.00 - 0.05 x10(3)/mc L CERNER MILLENNIUM Blood specimen (specimen) 02/18/2013 2:50 AM EST 02/18/2013 3:05 AM EST Zahida Jones MD [facility]ATOLOGY [facility]ABLE S [facility] * (ABNORMAL) Basic Metabolic Panel (non-fasting) (02/18/2013 2:50 AM EST) Glucose 98 60 - 199 mg/dL CERNER MILLENNIUM Comment:Diabetes: >=200 mg/d L plus symptoms Blood Urea Nitrogen 7(L) 8 - 18 mg/dL CERNER MILLENNIUM Creatinine 0.49(L) 0.70 - 1.20 mg/dL CERNER MILLENNIUM Comment: Please note that the pediatric reference intervals supplied above were not validated at [facility]. Results from pediatric patients should be interpreted in conjunction to the patient's age, height and muscle mass. Sodium 139 135 - 145 mmol/L CERNER MILLENNIUM Potassium 3.7 3.5 - 5.0 mmol/L CERNER MILLENNIUM Comment: Please note: ??Patients with WBC >100,000 may have falsely elevated Potassium levels. ??For accurate Potassium quantification in these patients send serum separator tube (gold top) for subsequent determinations. ??Contact the Clinical Chemistry Laboratory if there are any questions. Chloride 104 98 - 107 mmol/L CERNER MILLENNIUM Carbon Dioxide 25 22 - 31 mmol/L CERNER MILLENNIUM Anion Gap 10 5 - 15 mmol/L CERNER MILLENNIUM Calcium 8.3(L) 8.5 - 10.5 mg/dL CERNER MILLENNIUM Est Glomerular Filtration Rate >60 >=60 CERNER MILLENNIUM Comment: This estimated GFR (eGFR) value was [...] internet browser. http://www.nkdep.nih.gov/lab-evaluation.shtml http://www.kidney.org/professionals/ Blood specimen (specimen) 02/18/2013 2:50 AM EST 02/18/2013 3:05 AM EST Narrative Resulting Agency Comment Spec In Lab Zahida Jones MD CHEMISTRY ORDERABLES CERNER MILLENNIUM * (ABNORMAL) CBC (with Diff) (02/18/2013 2:50 AM EST) White Blood Cell 6.7 4.0 - 10.0 x10(3)/mc L CERNER MILLENNIUM Red Blood Cell 3.63(L) 3.93 - 5.22 x10(6)/mc L CERNER MILLENNIUM Hemoglobin 11.0(L) 11.2 - 15.7 gm/dL CERNER MILLENNIUM Hematocrit 31.6(L) 34.0 - 45.0 % CERNER MILLENNIUM Mean Cell Volume 87.1 79.0 - 94.0 fL CERNER MILLENNIUM Mean Cell Hemoglobin 30.3 26.6 - 32.2 pg CERNER MILLENNIUM Mean Cell Hemoglobin Concentration 34.8 32.0 - 36.5 gm/dL CERNER MILLENNIUM Platelet 227 145 - 370 x10(3)/mc L CERNER MILLENNIUM RDW Standard Deviation 39.1 35.0 - 46.0 fL CERNER MILLENNIUM RDW coefficient of variation 12.2 10.9 - 14.4 % CERNER MILLENNIUM Mean Platelet Volume 9.1 9.0 - 12.0 fL CERNER MILLENNIUM Blood specimen (specimen) 02/18/2013 2:50 AM EST 02/18/2013 3:05 AM EST Narrative Resulting Agency Comment Spec In Lab Zahida Jones MD HEMATOLOGY ORDERABLE S CERMAGDA MCCAULEYENNIUM * (ABNORMAL) Differential, Automated (02/17/2013 2:48 AM EST) Neutrophil % 71.2(H) 34.0 - 71.0 % CERNER MILLENNIUM Neutrophil Absolute 4.57 1.50 - 6.30 x10(3)/mc L CERNER MILLENNIUM Lymph % 18.8(L) 19.0 - 53.0 % CERNER MILLENNIUM Lymphocytes Abs 1.2 1.0 - 3.6 x10(3)/mc L CERNER MILLENNIUM Monocyte % 7.3 4.0 - 13.0 % CERNER MILLENNIUM Monocyte Abs 0.5 0.2 - 1.0 x10(3)/mc L CERNER MILLENNIUM Eos % 2.3 0.0 - 7.0 % CERNER MILLENNIUM Eosinophils Abs 0.2 0.0 - 0.5 x10(3)/mc L CERNER MILLENNIUM Basophil % 0.2 0.0 - 2.0 % CERNER MILLENNIUM Baso Absolute 0.0 0.0 - 0.2 x10(3)/mc L CERNER MILLENNIUM Immature Gran % 0.20 0.00 - 0.66 % CERNER MILLENNIUM Comment: Immature granulocytes(IG's)percentage and absolute count will include metamyelocytes, myelocytes, and promyelocytes. Blood smears from CBCs yielding IG's will be scanned manually for concordance. If this scan disagrees with the automated IG or if promyelocytes are noted, a manual differential will be performed. Immature Gran Absolute 0.01 0.00 - 0.05 x10(3)/mc L CERNER MILLENNIUM Blood specimen (specimen) 02/17/2013 2:48 AM EST 02/17/2013 2:59 AM EST Zahida Jones MD HEMATOLOGY ORDERABLE S CJ LIPSCOMB * (ABNORMAL) Basic Metabolic Panel (non-fasting) (02/17/2013 2:48 AM EST) Glucose 109 60 - 199 mg/dL CERNER MILLENNIUM Comment:Diabetes: >=200 mg/d L plus symptoms Blood Urea Nitrogen 5(L) 8 - 18 mg/dL CERNER MILLENNIUM Comment:result rechecked-RF Creatinine 0.48(L) 0.70 - 1.20 mg/dL CERNER MILLENNIUM Comment: Please note that the pediatric reference intervals supplied above were not validated at [facility]. Results from pediatric patients should be interpreted in conjunction to the patient's age, height and muscle mass. Sodium 141 135 - 145 mmol/L CERNER MILLENNIUM Potassium 3.7 3.5 - 5.0 mmol/L CERNER MILLENNIUM Comment: Please note: ??Patients with WBC >100,000 may have falsely elevated Potassium levels. ??For accurate Potassium quantification in these patients send serum separator tube (gold top) for subsequent determinations. ??Contact the Clinical Chemistry Laboratory if there are any questions. Chloride 110(H) 98 - 107 mmol/L CERNER MILLENNIUM Carbon Dioxide 22 22 - 31 mmol/L CERNER MILLENNIUM Anion Gap 9 5 - 15 mmol/L CERNER MILLENNIUM Calcium 7.6(L) 8.5 - 10.5 mg/dL CERNER MILLENNIUM Est Glomerular Filtration Rate >60 >=60 CERNER MILLENNIUM Comment: This estimated GFR (eGFR) value was [...] internet browser. http://www.nkdep.nih.gov/lab-evaluation.shtml http://www.kidney.org/professionals/ Blood specimen (specimen) 02/17/2013 2:48 AM EST 02/17/2013 2:59 AM EST Narrative Resulting Agency Comment Spec In Lab Zahida Jones MD CHEMISTRY ORDERABLES CERMAGDA MCCAULEYENNIUM * (ABNORMAL) CBC (with Diff) (02/17/2013 2:48 AM EST) White Blood Cell 6.4 4.0 - 10.0 x10(3)/mc L CERNER MILLENNIUM Red Blood Cell 3.46(L) 3.93 - 5.22 x10(6)/mc L CERNER MILLENNIUM Hemoglobin 10.3(L) 11.2 - 15.7 gm/dL CERNER MILLENNIUM Hematocrit 30.3(L) 34.0 - 45.0 % CERNER MILLENNIUM Mean Cell Volume 87.6 79.0 - 94.0 fL CERNER MILLENNIUM Mean Cell Hemoglobin 29.8 26.6 - 32.2 pg CERNER MILLENNIUM Mean Cell Hemoglobin Concentration 34.0 32.0 - 36.5 gm/dL CERNER MILLENNIUM Platelet 153 145 - 370 x10(3)/mc L CERNER MILLENNIUM RDW Standard Deviation 39.6 35.0 - 46.0 fL CERNER MILLENNIUM RDW coefficient of variation 12.3 10.9 - 14.4 % CERNER MILLENNIUM Mean Platelet Volume 9.7 9.0 - 12.0 fL CERNER MILLENNIUM Blood specimen (specimen) 02/17/2013 2:48 AM EST 02/17/2013 2:59 AM EST Narrative Resulting Agency Comment Spec In Lab Zahida Jones MD HEMATOLOGY ORDERABLE S CERMAGDA MAYAIUM * (ABNORMAL) Differential, Automated (02/16/2013 2:16 AM EST) Neutrophil % 84.7(H) 34.0 - 71.0 % CERNER MILLENNIUM Neutrophil Absolute 8.43(H) 1.50 - 6.30 x10(3)/mc L CERNER MILLENNIUM Lymph % 8.0(L) 19.0 - 53.0 % CERNER MILLENNIUM Lymphocytes Abs 0.8(L) 1.0 - 3.6 x10(3)/mc L CERNER MILLENNIUM Monocyte % 5.7 4.0 - 13.0 % CERNER MILLENNIUM Monocyte Abs 0.6 0.2 - 1.0 x10(3)/mc L CERNER MILLENNIUM Eos % 1.4 0.0 - 7.0 % CERNER MILLENNIUM Eosinophils Abs 0.1 0.0 - 0.5 x10(3)/mc L CERNER MILLENNIUM Basophil % 0.0 0.0 - 2.0 % CERNER MILLENNIUM Baso Absolute 0.0 0.0 - 0.2 x10(3)/mc L CERNER MILLENNIUM Immature Gran % 0.20 0.00 - 0.66 % CERNER MILLENNIUM Comment: Immature granulocytes(IG's)percentage and absolute count will include metamyelocytes, myelocytes, and promyelocytes. Blood smears from CBCs yielding IG's will be scanned manually for concordance. If this scan disagrees with the automated IG or if promyelocytes are noted, a manual differential will be performed. Immature Gran Absolute 0.02 0.00 - 0.05 x10(3)/mc L CERNER MILLENNIUM Blood specimen (specimen) 02/16/2013 2:16 AM EST 02/16/2013 2:40 AM EST Zahida Jones MD [facility]ATOLOGY ORDERABLE S [facility] * (ABNORMAL) Basic Metabolic Panel (non-fasting) (02/16/2013 2:16 AM EST) [facility] Glucose 133 60 - 199 mg/dL CERNER MILLENNIUM Comment:Diabetes: >=200 mg/d L plus symptoms Blood Urea Nitrogen 3(L) 8 - 18 mg/dL CERNER MILLENNIUM Creatinine 0.52(L) 0.70 - 1.20 mg/dL CERNER MILLENNIUM Comment: Please note that the pediatric reference intervals supplied above were not validated at [facility]. Results from pediatric patients should be interpreted in conjunction to the patient's age, height and muscle mass. Sodium 136 135 - 145 mmol/L CERNER MILLENNIUM Potassium 3.3(L) 3.5 - 5.0 mmol/L CERNER MILLENNIUM Comment: Please note: ??Patients with WBC >100,000 may have falsely elevated Potassium levels. ??For accurate Potassium quantification in these patients send serum separator tube (gold top) for subsequent determinations. ??Contact the Clinical Chemistry Laboratory if there are any questions. Chloride 104 98 - 107 mmol/L CERNER MILLENNIUM Carbon Dioxide 24 22 - 31 mmol/L CERNER MILLENNIUM Anion Gap 8 5 - 15 mmol/L CERNER MILLENNIUM Calcium 7.9(L) 8.5 - 10.5 mg/dL CERNER MILLENNIUM Est Glomerular Filtration Rate >60 >=60 CERNER MILLENNIUM Comment: This estimated GFR (eGFR) value was [...] internet browser. http://www.nkdep.nih.gov/lab-evaluation.shtml http://www.kidney.org/professionals/ Blood specimen (specimen) 02/16/2013 2:16 AM EST 02/16/2013 2:40 AM EST Narrative Resulting Agency Comment Spec In Lab Zahida Jones MD CHEMISTRY ORDERABLES CJ LIPSCOMB * (ABNORMAL) CBC (with Diff) (02/16/2013 2:16 AM EST) White Blood Cell 10.0 4.0 - 10.0 x10(3)/mc L CERNER MILLENNIUM Red Blood Cell 3.70(L) 3.93 - 5.22 x10(6)/mc L CERNER MILLENNIUM Hemoglobin 11.3 11.2 - 15.7 gm/dL CERNER MILLENNIUM Hematocrit 32.5(L) 34.0 - 45.0 % CERNER MILLENNIUM Mean Cell Volume 87.8 79.0 - 94.0 fL CERNER MILLENNIUM Mean Cell Hemoglobin 30.5 26.6 - 32.2 pg CERNER MILLENNIUM Mean Cell Hemoglobin Concentration 34.8 32.0 - 36.5 gm/dL CERNER MILLENNIUM Platelet 148 145 - 370 x10(3)/mc L CERNER MILLENNIUM RDW Standard Deviation 39.6 35.0 - 46.0 fL CERNER MILLENNIUM RDW coefficient of variation 12.3 10.9 - 14.4 % CERNER MILLENNIUM Mean Platelet Volume 9.8 9.0 - 12.0 fL CERNER MILLENNIUM Blood specimen (specimen) 02/16/2013 2:16 AM EST 02/16/2013 2:40 AM EST Narrative Resulting Agency Comment Spec In Lab Zahida Jones MD HEMATOLOGY ORDERABLE S CERNER PARISAENNIUM * (ABNORMAL) Differential, Automated (02/15/2013 2:12 AM EST) Neutrophil % 87.0(H) 34.0 - 71.0 % CERNER MILLENNIUM Neutrophil Absolute 10.03(H) 1.50 - 6.30 x10(3)/mc L CERNER MILLENNIUM Lymph % 7.3(L) 19.0 - 53.0 % CERNER MILLENNIUM Lymphocytes Abs 0.8(L) 1.0 - 3.6 x10(3)/mc L CERNER MILLENNIUM Monocyte % 5.0 4.0 - 13.0 % CERNER MILLENNIUM Monocyte Abs 0.6 0.2 - 1.0 x10(3)/mc L CERNER MILLENNIUM Eos % 0.3 0.0 - 7.0 % CERNER MILLENNIUM Eosinophils Abs 0.0 0.0 - 0.5 x10(3)/mc L CERNER MILLENNIUM Basophil % 0.1 0.0 - 2.0 % CERNER MILLENNIUM Baso Absolute 0.0 0.0 - 0.2 x10(3)/mc L CERNER MILLENNIUM Immature Gran % 0.30 0.00 - 0.66 % CERNER MILLENNIUM Comment: Immature granulocytes(IG's)percentage and absolute count will include metamyelocytes, myelocytes, and promyelocytes. Blood smears from CBCs yielding IG's will be scanned manually for concordance. If this scan disagrees with the automated IG or if promyelocytes are noted, a manual differential will be performed. Immature Gran Absolute 0.03 0.00 - 0.05 x10(3)/mc L CERNER MILLENNIUM Blood specimen (specimen) 02/15/2013 2:12 AM EST 02/15/2013 2:46 AM EST Zahida Jones MD HEMATOLOGY ORDERABLE S CERNER MILLENNIUM * (ABNORMAL) Basic Metabolic Panel (non-fasting) (02/15/2013 2:12 AM EST) Glucose 125 60 - 199 mg/dL CERNER MILLENNIUM Comment:Diabetes: >=200 mg/d L plus symptoms Blood Urea Nitrogen 5(L) 8 - 18 mg/dL CERNER MILLENNIUM Creatinine 0.52(L) 0.70 - 1.20 mg/dL CERNER MILLENNIUM Comment: Please note that the pediatric reference intervals supplied above were not validated at [facility]. Results from pediatric patients should be interpreted in conjunction to the patient's age, height and muscle mass. Sodium 135 135 - 145 mmol/L CERNER MILLENNIUM Potassium 3.6 3.5 - 5.0 mmol/L CERNER MILLENNIUM Comment: Please note: ??Patients with WBC >100,000 may have falsely elevated Potassium levels. ??For accurate Potassium quantification in these patients send serum separator tube (gold top) for subsequent determinations. ??Contact the Clinical Chemistry Laboratory if there are any questions. Chloride 105 98 - 107 mmol/L CERNER MILLENNIUM Carbon Dioxide 20(L) 22 - 31 mmol/L CERNER MILLENNIUM Anion Gap 10 5 - 15 mmol/L CERNER MILLENNIUM Calcium 7.6(L) 8.5 - 10.5 mg/dL CERNER MILLENNIUM Est Glomerular Filtration Rate >60 >=60 CERNER MILLENNIUM Comment: This estimated GFR (eGFR) value was [...] internet browser. http://www.nkdep.nih.gov/lab-evaluation.shtml http://www.kidney.org/professionals/ Blood specimen (specimen) 02/15/2013 2:12 AM EST 02/15/2013 2:47 AM EST Narrative Resulting Agency Comment Spec In Lab Zahida Jones MD CHEMISTRY ORDERABLES Performing Organization Address City/State/[facility] Co de Phone Number CERNER MILLENNIUM * (ABNORMAL) CBC (with Diff) (02/15/2013 2:12 AM EST) White Blood Cell 11.5(H) 4.0 - 10.0 x10(3)/mc L CERNER MILLENNIUM Red Blood Cell 3.77(L) 3.93 - 5.22 x10(6)/mc L CERNER MILLENNIUM Hemoglobin 11.4 11.2 - 15.7 gm/dL CERNER MILLENNIUM Hematocrit 33.1(L) 34.0 - 45.0 % CERNER MILLENNIUM Mean Cell Volume 87.8 79.0 - 94.0 fL CERNER MILLENNIUM Mean Cell Hemoglobin 30.2 26.6 - 32.2 pg CERNER MILLENNIUM Mean Cell Hemoglobin Concentration 34.4 32.0 - 36.5 gm/dL CERNER MILLENNIUM Platelet 155 145 - 370 x10(3)/mc L CERNER MILLENNIUM RDW Standard Deviation 39.0 35.0 - 46.0 fL CERNER MILLENNIUM RDW coefficient of variation 12.1 10.9 - 14.4 % CERNER MILLENNIUM Mean Platelet Volume 9.8 9.0 - 12.0 fL CERNER MILLENNIUM Blood specimen (specimen) 02/15/2013 2:12 AM EST 02/15/2013 2:46 AM EST Narrative Resulting Agency Comment Spec In Lab Zahida Jones MD HEMATOLOGY ORDERABLE S CJ MCCAULEYENNIUM * (ABNORMAL) Differential, Automated (02/14/2013 5:56 PM EST) Neutrophil % 85.2(H) 34.0 - 71.0 % CERNER MILLENNIUM Neutrophil Absolute 8.25(H) 1.50 - 6.30 x10(3)/mc L CERNER MILLENNIUM Lymph % 9.0(L) 19.0 - 53.0 % CERNER MILLENNIUM Lymphocytes Abs 0.9(L) 1.0 - 3.6 x10(3)/mc L CERNER MILLENNIUM Monocyte % 5.0 4.0 - 13.0 % CERNER MILLENNIUM Monocyte Abs 0.5 0.2 - 1.0 x10(3)/mc L CERNER MILLENNIUM Eos % 0.6 0.0 - 7.0 % CERNER MILLENNIUM Eosinophils Abs 0.1 0.0 - 0.5 x10(3)/mc L CERNER MILLENNIUM Basophil % 0.1 0.0 - 2.0 % CERNER MILLENNIUM Baso Absolute 0.0 0.0 - 0.2 x10(3)/mc L CERNER MILLENNIUM Immature Gran % 0.10 0.00 - 0.66 % CERNER MILLENNIUM Comment: Immature granulocytes(IG's)percentage and absolute count will include metamyelocytes, myelocytes, and promyelocytes. Blood smears from CBCs yielding IG's will be scanned manually for concordance. If this scan disagrees with the automated IG or if promyelocytes are noted, a manual differential will be performed. Immature Gran Absolute 0.01 0.00 - 0.05 x10(3)/mc L CERNER MILLENNIUM Blood specimen (specimen) 02/14/2013 5:56 PM EST 02/14/2013 6:01 PM EST Chris Orozco MD HEMATOLOGY ORDERABL ES CJ MAYAIUM * CBC (with Diff) (02/14/2013 5:56 PM EST) White Blood Cell 9.7 4.0 - 10.0 x10(3)/mcL CERNER MILLENNIUM Red Blood Cell 3.95 3.93 - 5.22 x10(6)/mcL CERNER MILLENNIUM Hemoglobin 12.0 11.2 - 15.7 gm/dL CERNER MILLENNIUM Hematocrit 35.0 34.0 - 45.0 % CERNER MILLENNIUM Mean Cell Volume 88.6 79.0 - 94.0 fL CERNER MILLENNIUM Mean Cell Hemoglobin 30.4 26.6 - 32.2 pg CERNER MILLENNIUM Mean Cell Hemoglobin Concentration 34.3 32.0 - 36.5 gm/dL CERNER MILLENNIUM Platelet 149 145 - 370 x10(3)/mcL CERNER MILLENNIUM RDW Standard Deviation 39.5 35.0 - 46.0 fL CERNER MILLENNIUM RDW coefficient of variation 12.1 10.9 - 14.4 % CERNER MILLENNIUM Mean Platelet Volume 9.9 9.0 - 12.0 fL CERNER MILLENNIUM Blood specimen (specimen) 02/14/2013 5:56 PM EST 02/14/2013 6:01 PM EST Narrative Resulting Agency Comment Spec In Lab Chris Orozco MD HEMATOLOGY ORDERABL ES CERNER PARISAENNIUM * (ABNORMAL) Differential, Automated (02/14/2013 12:00 PM EST) Neutrophil % 81.5(H) 34.0 - 71.0 % CERNER MILLENNIUM Neutrophil Absolute 6.63(H) 1.50 - 6.30 x10(3)/mc L CERNER MILLENNIUM Lymph % 12.1(L) 19.0 - 53.0 % CERNER MILLENNIUM Lymphocytes Abs 1.0 1.0 - 3.6 x10(3)/mc L CERNER MILLENNIUM Monocyte % 5.2 4.0 - 13.0 % CERNER MILLENNIUM Monocyte Abs 0.4 0.2 - 1.0 x10(3)/mc L CERNER MILLENNIUM Eos % 0.7 0.0 - 7.0 % CERNER MILLENNIUM Eosinophils Abs 0.1 0.0 - 0.5 x10(3)/mc L CERNER MILLENNIUM Basophil % 0.1 0.0 - 2.0 % CERNER MILLENNIUM Baso Absolute 0.0 0.0 - 0.2 x10(3)/mc L CERNER MILLENNIUM Immature Gran % 0.40 0.00 - 0.66 % CERNER MILLENNIUM Comment: Immature granulocytes(IG's)percentage and absolute count will include metamyelocytes, myelocytes, and promyelocytes. Blood smears from CBCs yielding IG's will be scanned manually for concordance. If this scan disagrees with the automated IG or if promyelocytes are noted, a manual differential will be performed. Immature Gran Absolute 0.03 0.00 - 0.05 x10(3)/mc L CERNER MILLENNIUM Blood specimen (specimen) 02/14/2013 12:00 PM EST 02/14/2013 12:08 PM EST Chris Orozco MD HEMATOLOGY ORDERABL ES CERNER MILLENNIUM * (ABNORMAL) CBC (with Diff) (02/14/2013 12:00 PM EST) White Blood Cell 8.1 4.0 - 10.0 x10(3)/mc L CERNER MILLENNIUM Red Blood Cell 3.90(L) 3.93 - 5.22 x10(6)/mc L CERNER MILLENNIUM Hemoglobin 11.6 11.2 - 15.7 gm/dL CERNER MILLENNIUM Hematocrit 34.3 34.0 - 45.0 % CERNER MILLENNIUM Mean Cell Volume 87.9 79.0 - 94.0 fL CERNER MILLENNIUM Mean Cell Hemoglobin 29.7 26.6 - 32.2 pg CERNER MILLENNIUM Mean Cell Hemoglobin Concentration 33.8 32.0 - 36.5 gm/dL CERNER MILLENNIUM Platelet 137(L) 145 - 370 x10(3)/mc L CERNER MILLENNIUM RDW Standard Deviation 39.7 35.0 - 46.0 fL CERNER MILLENNIUM RDW coefficient of variation 12.3 10.9 - 14.4 % CERNER MILLENNIUM Mean Platelet Volume 9.4 9.0 - 12.0 fL CERNER MILLENNIUM Blood specimen (specimen) 02/14/2013 12:00 PM EST 02/14/2013 12:08 PM EST Narrative Resulting Agency Comment Spec In Lab Chris Orozco MD HEMATOLOGY ORDERABL ES CJ LIPSCOMB * XR pelvis complete minimum 3 view (02/14/2013 6:46 AM EST) Anatomical Region Laterality Modality Pelvis N/A Radiographic Tricia ging 02/14/2013 6:46 AM EST Narrative 02/14/2013 9:01 AM EST Examination PELVIS COMPLETE MINIMUM THREE VIEWS Clinical History h/o of sacral fx's Comparison CT chest, abdomen, and pelvis on February 13, 2013. ?? Technique Three views of the pelvis (AP, inlet, and outlet views) Findings The comminuted fractures of bilateral sacral a ala are better seen on CAT scan. In fact, the sacrum is obscured by overlying bowel gas. ?? Both SI joints are symmetric and no diastases of the pubic symphysis. No hip fractures. ?? Impression ? 1. The bilateral sacral ala fractures are better seen on CT examination. ? 2. The SI joints are symmetric and no pubic diastases. Film and interpretation reviewed by the attending Procedure Note Nelly Mcnulty MD - 02/14/2013 Examination PELVIS COMPLETE MINIMUM THREE VIEWS Clinical History h/o of sacral fx's Comparison CT chest, abdomen, and pelvis on February 13, 2013. Technique Three views of the pelvis (AP, inlet, and outlet views) Findings The comminuted fractures of bilateral sacral a ala are better seen on CATscan. In fact, the sacrum is obscured by overlying bowel gas. Both SI joints are symmetric and no diastases of the pubic symphysis. Nohip fractures. Impression 1. The bilateral sacral ala fractures are better seen on CTexamination. 2. The SI joints are symmetric and no pubic diastases. Film and interpretation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 mg fentaNYL 50mcg/mL injection 25-50 mcg, Intravenous, PER TRAUMA ANALGESIC PROTOCOL, Starting on Mon02/13/13 at 1741, Until Mon02/14/13 at 1150, Pain, Every 5-15 minutes PRN, STAT Given 02/13/2013 8:20 PM EST 50 mcg Left Arm Given 02/13/2013 7:07 PM EST 50 mcg Le ft Arm Given 02/13/2013 6:27 PM EST 50 mcg Le ft Arm gabapentin (NEURONTIN) capsule 100 mg 100 mg, Oral, 3 TIMES DAILY, First dose on Mon02/19/13 at 1500, Until Discontinued, Routine Given 02/20/2013 9:00 AM EST 100 mg Given 02/19/2013 10:01 PM EST 100 mg Given 02/19/2013 4:00 PM EST 100 mg gabapentin (NEURONTIN) capsule 300 mg 300 mg, Oral, 3 TIMES DAILY, First dose (after last modification) on Mon02/20/13 at 1500, Until Discontinued, Routine Given 02/22/2013 2:58 PM EST 300 mg Given 02/22/2013 8:12 AM EST 300 mg Given 02/21/2013 9:03 PM EST 300 mg gabapentin (NEURONTIN) capsule 300 mg 300 mg, Oral, 2 TIMES DAILY BEFORE BREAKFAST AND LUNCH, First dose (after last modification) on Mon02/23/13 at 0730, Until Discontinued, Routine Given 02/23/2013 11:14 AM EST 300 mg Given 02/23/2013 8:37 AM EST 300 mg gabapentin (NEURONTIN) capsule 600 mg 600 mg, Oral, NIGHTLY, First dose on Mon02/22/13 at 2100, Until Discontinued, Routine Given 02/22/2013 9:00 PM EST 600 mg HYDROmorphone (DILAUDID) 1 mg/mL RN OPERATING ROOM 30 mL Intravenous, RN OPERATING ROOM ONLY, Starting on Mon02/13/13 at 2130, Until Mon02/14/13 at 1248 Rate/Dose Verify 02/14/2013 11:56 AM EST New Syringe/Cartridge 02/13/2013 9:50 PM EST 0.2 mg/hr 0. 2 mL/hr HYDROmorphone (DILAUDID) 1 mg/mL RN OPERATING ROOM 30 mL Intravenous, RN OPERATING ROOM ONLY, Starting on Mon02/14/13 at 1315, Until Mon02/17/13 at 0831 Rate/Dose Verify 02/15/2013 8:12 AM EST Rate/Dose Change 02/14/2013 1:30 PM EST HYDROmorphone (DILAUDID) 1 mg/mL RN OPERATING ROOM 30 mL Intravenous, RN OPERATING ROOM ONLY, Starting on Mon02/19/13 at 1900, Until Mon02/22/13 at 0734 New Syringe/Cartridge 02/19/2013 8:12 PM EST HYDROmorphone (DILAUDID) injection 0.5 mg 0.5 mg, Intravenous, EVERY 2 HOURS PRN, Starting on Mon02/15/13 at 1532, Until Mon02/19/13 at 1634, Pain, for when pt is ready to be moved, Routine Given 02/18/2013 1:50 PM EST 0.5 mg Given 02/18/2013 8:48 AM EST 0.5 mg HYDROmorphone (DILAUDID) injection 0.5 mg 0.5 mg, Intravenous, EVERY 4 HOURS PRN, Starting on Mon02/19/13 at 1634, Until 02/23/13 at 1500, Pain, for when patient is about to work with PT or be moved, Routine Given 02/22/2013 2:47 PM EST 0 .5 mg Given 02/22/2013 8:46 AM EST 0.5 mg ketorolac (TORADOL) injection 15 mg 15 mg, Intravenous, EVERY 6 HOURS SCHEDULED, 20 doses, First dose on Mon02/15/13 at 1415, Last dose on Mon02/20/13 at 0600, Routine Given 02/19/2013 12:00 PM EST 15 mg Given 02/19/2013 6:18 AM EST 15 mg Given 02/18/2013 11:57 PM EST 15 mg loratadine (CLARITIN) tablet 10 mg 10 mg, Oral, DAILY, First dose on Mon02/15/13 at 0900, Until Discontinued, Routine Given 02/23/2013 8:38 AM EST 10 mg Given 02/22/2013 8:12 AM EST 10 mg Given 02/21/2013 8:07 AM EST 10 mg LORazepam (ATIVAN) injection 0.5 mg 0.5 mg, Intravenous, EVERY 4 HOURS PRN, Starting on Mon02/19/13 at 1633, Until Mon02/23/13 at 1500, Anxiety, for when pt is about to work with PT or be moved, Routine Given 02/22/2013 2:47 PM EST 0 .5 mg Given 02/22/2013 8:46 AM EST 0.5 mg LORazepam (ATIVAN) tablet 0.5 mg 0.5 mg, Oral, ONCE PRN, 1 dose, Starting on Mon02/20/13 at 1314, Until Mon02/20/13 at 1340, Anxiety, Routine Given 02/20/2013 1:40 PM EST 0.5 mg methylPREDNISolone (MEDROL) tablet 6 mg 6 mg, Oral, 3 TIMES DAILY, 6 doses, First dose on Mon02/22/13 at 0900, Last dose on Mon02/23/13 at 2100, Routine Given 02/23/2013 8:38 AM EST 6 mg Given 02/22/2013 9:00 PM EST 6 mg Given 02/22/2013 2:58 PM EST 6 mg methylPREDNISolone (MEDROL) tablet 8 mg 8 mg, Oral, 3 TIMES DAILY, 4 doses, First dose on Mon02/20/13 at 2100, Last dose on Mon02/21/13 at 2100, Routine Given 02/21/2013 9:04 PM EST 8 mg Given 02/21/2013 3:04 PM EST 8 mg Given 02/21/2013 8:06 AM EST 8 mg nicotine (NICODERM CQ) 14 mg/24 hr patch 14 mg 14 mg, Transdermal, Administer over 24 Hours, DAILY, First dose on Mon02/22/13 at 1000, Until Discontinued, Routine Given 02/23/2013 8:37 AM EST 14 mg Given 02/22/2013 11:13 AM EST 14 mg nicotine (NICODERM CQ) patch REMOVAL Transdermal, DAILY, First dose on Mon02/23/13 at 0900, Until Discontinued, Remove Nicotine Patch Given 02/23/2013 8:37 AM EST 1 patch ondansetron (ZOFRAN) injection 4 mg 4 mg, Intravenous, EVERY 30 MIN PRN, 2 doses, Starting on Mon02/13/13 at 2100, Until Mon02/13/13 at 2240, Nausea, May repeat dose once in 30 minutes if no relief from previous dose. Given 02/13/2013 10:40 PM EST 4 mg Left Arm Given 02/13/2013 9:10 PM EST 4 mg Le ft Arm ondansetron (ZOFRAN) injection 4 mg 4 mg, Intravenous, EVERY 8 HOURS PRN, Starting on Mon02/14/13 at 1250, Until Mon02/19/13 at 1840, Nausea Given 02/16/2013 9:42 AM EST 4 mg Given 02/15/2013 9:33 AM EST 4 mg Given 02/14/2013 9:24 PM EST 4 mg OXYcodone (oxyCONTIN) CR tablet 10 mg 10 mg, Oral, EVERY 12 HOURS SCHEDULED (2 times per day), First dose on Mon02/21/13 at 1015, Until Discontinued Given 02/22/2013 8:09 AM EST 10 mg Given 02/21/2013 9:04 PM EST 10 mg Given 02/21/2013 11:03 AM EST 10 mg OXYcodone (oxyCONTIN) CR tablet 20 mg 20 mg, Oral, EVERY 12 HOURS SCHEDULED (2 times per day), First dose (after last modification) on Mon02/22/13 at 2100, Until Discontinued Given 02/23/2013 8:38 AM EST 20 mg Given 02/22/2013 9:00 PM EST 20 mg OXYcodone (ROXICODONE) immediate release tablet 10-30 mg 10-30 mg, Oral, EVERY 3 HOURS PRN, Starting on Mon02/22/13 at 1540, Until 02/23/13 at 1500, Pain, Routine Given 02/23/2013 12:42 PM EST 10 mg Given 02/23/2013 9:26 AM EST 10 mg Given 02/23/2013 2:55 AM EST 15 mg OXYcodone (ROXICODONE) immediate release tablet 5-10 mg 5-10 mg, Oral, EVERY 4 HOURS PRN, Starting on Mon02/14/13 at 1246, Until 02/17/13 at 0833, Pain, Routine Given 02/16/2013 10:23 PM EST 10 mg Given 02/16/2013 4:12 PM EST 10 mg Given 02/16/2013 2:30 AM EST 10 mg OXYcodone (ROXICODONE) immediate release tablet 5-15 mg 5-15 mg, Oral, EVERY 3 HOURS PRN, Starting on 02/17/13 at 0845, Until Mon02/22/13 at 1541, Pain, Routine Given 02/22/2013 2:47 PM EST 15 mg Given 02/22/2013 11:14 AM EST 15 mg Given 02/22/2013 8:08 AM EST 15 mg phenol (CEPASTAT) lozenge 1 lozenge 1 lozenge, Oral, EVERY 3 HOURS PRN, sore throat, Starting on Mon02/22/13 at 0224, Until 02/23/13 at 1500 Given 02/22/2013 4:38 AM EST 1 lozenge polyethylene glycol (MIRALAX) packet 17 g 17 g, Oral, DAILY PRN, Starting on Keisha 11/21/13 at 1729, Until Keisha 02/21/13 at 0810, Constipation, Administer if needed per patient's routine or if no bowel movement within 48 hours, Routine Given 02/19/2013 1:54 PM EST 17 g Given 02/19/2013 11:00 AM EST 17 g polyethylene glycol (MIRALAX) packet 17 g 17 g, Oral, DAILY, First dose on Mon02/20/13 at 1100, Until Discontinued, Administer if needed per patient's routine or if no bowel movement within 48 hours, Routine Given 02/20/2013 11:00 AM EST 17 g potassium chloride 10 mEq in 100 mL 10 mEq, Intravenous, EVERY 2 HOURS, 4 doses, First dose on 02/16/13 at 0630, Last dose on 02/16/13 at 1230, Administer over 60 Minutes Given 02/16/2013 11:44 AM EST 10 m Eq 100 mL/hr Given 02/16/2013 10:36 AM EST 10 mEq 100 mL/hr Given 02/16/2013 9:24 AM EST 10 mEq 100 mL/hr prochlorperazine (COMPAZINE) injection 10 mg 10 mg, Intravenous, EVERY 6 HOURS PRN, Starting on Keisha 02/14/13 at 1718, Until 02/23/13 at 1500, Nausea, Routine Given 02/20/2013 8:51 PM EST 10 mg Given 02/20/2013 1:32 PM EST 10 mg Given 02/19/2013 9:56 PM EST 10 mg prochlorperazine (COMPAZINE) injection 5 mg 5 mg, Intravenous, EVERY 30 MIN PRN, 2 doses, Starting on Keisha 02/14/13 at 0439, Until Keisha 02/14/13 at 1130, Nausea, May repeat in 30 minutes if no relief from previous dose. HOLD if patient is sedated. Maximum dose is 40 mg in 24 hours., Routine Given 02/14/2013 11:30 AM EST 5 mg Given 02/14/2013 9:15 AM EST 5 mg Given 02/14/2013 4:54 AM EST 5 mg senna-docusate (PERICOLACE) 8.6-50 mg per tablet 1-4 tablet 1-4 tablet, Oral, 2 TIMES DAILY, First dose on Keisha 02/14/13 at 2100, Until Discontinued, Start with 1 tablet or liquid equivalent orally twice daily and titrate up to achieve: 1. One bowel movement at least every 48 hours, AND 2. Without straining, Routine Given 02/21/2013 9:00 AM EST 1 tablet Given 02/20/2013 9:02 PM EST 2 tablets Given 02/20/2013 9:00 AM EST 2 tablets sodium chloride 0.9 % flush 5 mL 5 mL, Intravenous, EVERY 12 HOURS, First dose on Keisha 02/14/13 at 1215, Until Discontinued Given 02/23/2013 11:15 AM EST 5 mLs Given 02/23/2013 12:15 AM EST 5 mLs Given 02/22/2013 11:16 AM EST 5 mLs sodium chloride 0.9% 500 mL IV bolus Intravenous, ONCE, 1 dose, On 02/16/13 at 1230 Given 02/16/2013 12:30 PM EST sodium chloride 0.9% infusion 1,000 mL, at 100 mL/hr, Intravenous, CONTINUOUS, Starting on Mon02/13/13 at 1915, Until Mon02/14/13 at 1728 New Bag 02/14/2013 2:54 PM EST 1,000 mLs 100 mL/hr New Bag 02/14/2013 4:54 AM EST 1,000 mLs 100 mL/hr New Bag 02/13/2013 7:00 PM EST 1,000 mLs 100 mL/hr Le ft Arm sodium chloride 0.9% infusion 10 mL/hr, Intravenous, CONTINUOUS, Starting on Mon02/19/13 at 1915, Until Mon02/22/13 at 1616 New Bag 02/19/2013 8:14 PM EST 10 mL/hr 10 m L/hr documented in this encounter Active and Recently Administered Medications Times are shown in EST. Scheduled Medication Order 02/21/2013 02/22/2013 02/23/2013 acetaminophen (TYLENOL) tablet 650 mg 650 mg, Oral, EVERY 4 HOURS SCHEDULED, First dose (after last modification) on Mon02/20/13 at 1200, Until Discontinued, Do not exceed 4,000 mg in 24 hours, Routine 0000 (Not Given - Provider: Meryl Daniel RN - Reason: Patient/family refused)0541 (Given - Provider: Bee Vasquez RN)0805 (Given - Provider: Magalys Pina RN)1104 (Given - Provider: Magalys Pina RN)1504 (Given - Provider: Magalys Pina RN)210 (Given - Provider: Bee Vasquez RN) 0102 (Given - Provider: Bee Vasquez RN)0410 (Given - Provider: Corina Diaz RN)0808 (Given - Provider: Magalys Pina RN)1113 (Given - Provider: Magalys Pina RN)1502 (Given - Provider: Magalys Pina RN)2000 (Given - Provider: Aren Alegre RN) 0000 (Given - Provider: Aren Alegre RN)0400 (Given - Provider: Aren Alegre RN)0837 (Given - Provider: Natalie Martinez RN)1114 (Given - Provider: Natalie Martinez RN) buPROPion (WELLBUTRIN SR) SR tablet 150 mg (CANCELED) 150 mg, Oral, 2 TIMES DAILY, First dose on Mon02/14/13 at 2100, Until Discontinued, Routine 0806 (Given - Provider: Magalys Pina RN)2102 (Given - Provider: Bee Vasquez RN) 0811 (Given - Provider: Magalys Pina RN)2100 (Given - Provider: Aren Alegre RN) 0837 (Given - Provider: Natalie Martinez RN) DILTiazem (CARDIZEM) tablet 60 mg (CANCELED) 60 mg, Oral, EVERY 12 HOURS SCHEDULED (2 times per day), First dose on Mon02/14/13 at 2100, Until Discontinued, Routine 0806 (Given - Provider: Magalys Pina RN)2102 (Given - Provider: Bee Vasquez RN) 0812 (Given - Provider: Maglays Pina RN)2100 (Given - Provider: Aren Alegre RN) 0837 (Given - Provider: Natalie Martinez RN) enoxaparin (LOVENOX) injection 30 mg 30 mg, Subcutaneous, EVERY 12 HOURS, First dose on Mon02/18/13 at 2300, Until Discontinued, Routine 1104 (Given - Provider: Magalys Pina RN)2226 (Given - Provider: Bee M Patch, RN) 1113 (Given - Provider: Magalys Pina RN)2331 (Given - Provider: Aren Alegre RN) 1114 (Given - Provider: Natalie Martinez RN) esomeprazole (NEXIUM) capsule 40 mg(Linked Group 1) 40 mg, Oral, DAILY, First dose on Keisha 02/14/13 at 1300, Until Discontinued, If unable to take PO, may give IV, Routine 0806 (Given - Provider: Magalys Pina RN) 0812 (Given - Provider: Magalys Pina RN) 0837 (Given - Provider: Natalie Martinez RN) gabapentin (NEURONTIN) capsule 300 mg (CANCELED) 300 mg, Oral, 3 TIMES DAILY, First dose (after last modification) on Mon02/20/13 at 1500, Until Discontinued, Routine 0807 (Given - Provider: Magalys Pina RN)1504 (Given - Provider: Magalys Pina RN)2103 (Given - Provider: Bee Vasquez RN) 0812 (Given - Provider: Magalys Pina RN)1458 (Given - Provider: Magalys Pina RN) gabapentin (NEURONTIN) capsule 300 mg 300 mg, Oral, 2 TIMES DAILY BEFORE BREAKFAST AND LUNCH, First dose (after last modification) on 02/23/13 at 0730, Until Discontinued, Routine 0837 (Given - Provider: Natalie Martinez RN)1114 (Given - Provider: Natalie Martinez RN) gabapentin (NEURONTIN) capsule 600 mg 600 mg, Oral, NIGHTLY, First dose on Mon02/22/13 at 2100, Until Discontinued, Routine 2100 (Given - Provider: Aren Alegre, EBONY) loratadine (CLARITIN) tablet 10 mg (CANCELED) 10 mg, Oral, DAILY, First dose on Mon02/15/13 at 0900, Until Discontinued, Routine 0807 (Given - Provider: Magalys Pina RN) 0812 (Given - Provider: Magalys Pina RN) 0838 (Given - Provider: Natalie Martinez RN) methylPREDNISolone (MEDROL) tablet 4 mg 4 mg, Oral, 3 TIMES DAILY, First dose on Mon02/24/13 at 0900, Until Discontinued, Routine methylPREDNISolone (MEDROL) tablet 6 mg 6 mg, Oral, 3 TIMES DAILY, 6 doses, First dose on Mon02/22/13 at 0900, Last dose on Mon02/23/13 at 2100, Routine 0814 (Given - Provider: Magalys Pina RN)1458 (Given - Provider: Magalys Pina RN)2100 (Given - Provider: Aren Alegre, EBONY) 0838 (Given - Provider: Natalie Martinez, EBONY) methylPREDNISolone (MEDROL) tablet 8 mg (COMPLETED) 8 mg, Oral, 3 TIMES DAILY, 4 doses, First dose on Mon02/20/13 at 2100, Last dose on Mon02/21/13 at 2100, Routine 0806 (Given - Provider: Magalys Pina RN)1504 (Given - Provider: Magalys Pina RN)2104 (Given - Provider: Bee Vasquez RN) nicotine (NICODERM CQ) 14 mg/24 hr patch 14 mg(Linked Group 2) 14 mg, Transdermal, Administer over 24 Hours, DAILY, First dose on Mon02/22/13 at 1000, Until Discontinued, Routine 1113 (Given - Provider: Magalys Pina RN) 0837 (Given - Provider: Natalie Martinez, EBONY) nicotine (NICODERM CQ) patch REMOVAL (CANCELED)(Linked Group 2) Transdermal, DAILY, First dose on Mon02/23/13 at 0900, Until Discontinued, Remove Nicotine Patch 0837 (Given - Provider: Natalie Martinez RN) OXYcodone (oxyCONTIN) CR tablet 10 mg (CANCELED) 10 mg, Oral, EVERY 12 HOURS SCHEDULED (2 times per day), First dose on Mon02/21/13 at 1015, Until Discontinued 1103 (Given - Provider: Magalys Pina RN)2104 (Given - Provider: Bee Vasquez, EBONY) 0809 (Given - Provider: Magalys Pina RN) OXYcodone (oxyCONTIN) CR tablet 20 mg 20 mg, Oral, EVERY 12 HOURS SCHEDULED (2 times per day), First dose (after last modification) on Mon02/22/13 at 2100, Until Discontinued 2100 (Given - Provider: Aren Alegre RN) 0838 (Given - Provider: Natalie Martinez RN) senna-docusate (PERICOLACE) 8.6-50 mg per tablet 1-4 tablet 1-4 tablet, Oral, 2 TIMES DAILY, First dose on Keisha 02/14/13 at 2100, Until Discontinued, Start with 1 tablet or liquid equivalent orally twice daily and titrate up to achieve: 1. One bowel movement at least every 48 hours, AND 2. Without straining, Routine 0900 (Given - Provider: Magalys Pina RN)2100 (Not Given - Provider: Bee Vasquez RN - Reason: Order parameters not met) 0900 (Not Given - Provider: Magalys Pina RN - Reason: Patient/family refused)2100 (Not Given - Provider: Aren Alegre RN - Reason: Patient/family refused) 0830 (Not Given - Provider: Natalie Martinez RN - Reason: Patient/family refused) sodium chloride 0.9 % flush 5 mL (CANCELED) 5 mL, Intravenous, EVERY 12 HOURS, First dose on Keisha 02/14/13 at 1215, Until Discontinued 0015 (Given - Provider: Meryl Daniel RN)1215 (Given - Provider: Magalys Pina RN) 0015 (Not Given - Provider: Bee Vasquez RN - Reason: See comment - Comment: IV infusing w/o difficulty)1116 (Given - Provider: Magalys Pina RN) 0015 (Given - Provider: Aren Alegre RN)1115 (Given - Provider: Natalie Martinez RN) PRN Medication Order 02/21/2013 02/22/2013 02/23/2013 diaZEPam (VALIUM) tablet 5 mg 5 mg, Oral, EVERY 6 HOURS PRN, Starting on Mon02/20/13 at 1456, Until 02/23/13 at 1500, Anxiety, Routine 0904 (Given - Provider: Yue Juarez RN)1921 (Given - Provider: Magalys Pina RN) 0811 (Given - Provider: Magalys Pina RN)1427 (Given - Provider: Patti Hodges) 0841 (Given - Provider: Natalie Martinez RN) HYDROmorphone (DILAUDID) injection 0.5 mg (CANCELED)(Linked Group 3) 0.5 mg, Intravenous, EVERY 4 HOURS PRN, Starting on Mon02/19/13 at 1634, Until 02/23/13 at 1500, Pain, for when patient is about to work with PT or be moved, Routine 0846 (Given - Provider: Magalys Pina RN)1447 (Given - Provider: Magalys Pina, RN) LORazepam (ATIVAN) injection 0.5 mg (CANCELED)(Linked Group 3) 0.5 mg, Intravenous, EVERY 4 HOURS PRN, Starting on Mon02/19/13 at 1633, Until Mon02/23/13 at 1500, Anxiety, for when pt is about to work with PT or be moved, Routine 0846 (Given - Provider: Magalys Pina RN)1447 (Given - Provider: Magalys Pina RN) OXYcodone (ROXICODONE) immediate release tablet 10-30 mg 10-30 mg, Oral, EVERY 3 HOURS PRN, Starting on Mon02/22/13 at 1540, Until 02/23/13 at 1500, Pain, Routine 1822 (Given - Provider: Magalys Pina RN) 0255 (Given - Provider: Aren Alegre RN)0926 (Given - Provider: Natalie Martinez, EBONY)1242 (Given - Provider: Natalie Martinez, EBONY) OXYcodone (ROXICODONE) immediate release tablet 5-15 mg (CANCELED) 5-15 mg, Oral, EVERY 3 HOURS PRN, Starting on Mon02/17/13 at 0845, Until Mon02/22/13 at 1541, Pain, Routine 0258 (Given - Provider: Corina Diaz, EBONY)0609 (Given - Provider: Meryl Daniel, EBONY)0904 (Given - Provider: Yue Juraez, EBONY)1301 (Given - Provider: Magalys Pina RN)1620 (Given - Provider: Magalys Pina RN)1922 (Given - Provider: Magalys Pina RN)2224 (Given - Provider: Bee Vasquez RN) 0130 (Given - Provider: Bee Vasquez RN)0509 (Given - Provider: Corina Diaz RN)0808 (Given - Provider: Magalys Pina, RN)1114 (Given - Provider: Magalys Pina, RN)1447 (Given - Provider: Magalys Pina RN) phenol (CEPASTAT) lozenge 1 lozenge 1 lozenge, Oral, EVERY 3 HOURS PRN, sore throat, Starting on Mon02/22/13 at 0224, Until Mon02/23/13 at 1500 0438 (Given - Provider: Bee Vasquez RN) polyethylene glycol (MIRALAX) packet 17 g 17 g, Oral, DAILY PRN, Starting on Mon02/21/13 at 0900, Until 02/23/13 at 1500, Constipation, Administer if needed per patient's routine or if no bowel movement within 48 hours, Routine Linked Groups Order Group 1: esomeprazole (NEXIUM) capsule 40 mgJump to med 40 mg, Oral, DAILY, First dose on Mon02/14/13 at 1300, Until Discontinued, If unable to take PO, may give IV, Routine Or esomeprazole (NEXIUM) injection 40 mg (CANCELED) 40 mg, Intravenous, DAILY, First dose on Mon02/14/13 at 1300, Until Discontinued, Routine Group 2: nicotine (NICODERM CQ) 14 mg/24 hr patch 14 mgJump to med 14 mg, Transdermal, Administer over 24 Hours, DAILY, First dose on Mon02/22/13 at 1000, Until Discontinued, Routine And nicotine (NICODERM CQ) patch REMOVAL (CANCELED)Jump to med Transdermal, DAILY, First dose on Mon02/23/13 at 0900, Until Discontinued, Remove Nicotine Patch Group 3: HYDROmorphone (DILAUDID) injection 0.5 mg (CANCELED)Jump to med 0.5 mg, Intravenous, EVERY 4 HOURS PRN, Starting on Mon02/19/13 at 1634, Until 02/23/13 at 1500, Pain, for when patient is about to work with PT or be moved, Routine And LORazepam (ATIVAN) injection 0.5 mg (CANCELED)Jump to med 0.5 mg, Intravenous, EVERY 4 HOURS PRN, Starting on Mon02/19/13 at 1633, Until Mon02/23/13 at 1500, Anxiety, for when pt is about to work with PT or be moved, Routine documented in this encounter Care Teams Hr Clerk Relationship Specialty Start Date End Date María Pires MD [facility] [address] [place] [address] PCP - General 05/03/11 02/25/13 documented as of this encounter
--- OUTSIDE RECORDS SUMMARY | 2023-12-25 15:11 | XMS_ITS | Clinical Summary ---
Author Organization [facility] Address [address] [place] [address] Care Team Providers Care Viscose Cellar Charge Hand Name Role Phone María Pires MD Primary Care Provider Sima vailable Allergies No known active allergies Medications Medication Sig Dispensed Refills Start Date End Date Status gabapentin (NEURONTIN) 300 mg capsule Take 1 Cap by mouth 3 times daily. 90 Cap 3 09/17/2013 Active diazepam (VALIUM) 10 mg tablet Bring prescription to the MRI appointment. They'll instruct you when to take the med. Do not drive.. 2 Tab 0 10/10/2013 Active Active Problems Problem Noted Date Diagnosed Date Numbness 09/17/2013 Weakness 09/17/2013 Migraine 09/17/2013 Encounters Date Type Department Care Team Description 10/02/2023 Lab Requisition [facility] Pathology & Laboratory Medicine [address] [address] Outr Resulting Lab, Provider 10/02/2023 Lab Requisition [facility] Pathology & Laboratory Medicine [address] [address] Outr Resulting Lab, Provider from Last 3 Months Social History Tobacco Use Types Packs/Day Years Used Date Smoking Tobacco: Former Cigarettes Q uit: 02/13/2013 Sex and Gender Information Value Date Recorded Sex Assigned at Not on file Gender Identity Not on file Sexual Orientation Not on file Obstetrics History Last Filed Vital Signs Vital Sign Reading Time Taken Comments Blood Pressure - - Pulse 80 09/17/2013 1251 EDT Temperature - - Respiratory Rate 12 09/17/2013 1251 EDT Oxygen Saturation - - Inhaled Oxygen Concentration - - Weight - - Height - - Body Mass Index - - Plan of Treatment Health Maintenance Due Date Last Done Comments Hepatitis B Vaccine (1 of 3 - 19+ 3-dose series) 04/15 COVID-19 Vaccine (2022-24 season) 2022 Hepatitis C Screen Completed 10/02/2023 Procedures Procedure Name Priority Date/Time Associated Diagnosis Comments HEPATITIS C AB W REFLEX TO HCV RNA BY PCR Routine 10/02/2023 9:15 EDT HIV 1/2 ANTIGEN AND ANTIBODY, 4TH GENERATION Routine 10/02/2023 9:15 EDT from Last 3 Months Results * HEPATITIS C AB W REFLEX TO HCV RNA BY PCR (10/02/2023 9:15 EDT) Hep C Antibody Negative Negative 10/03/2023 9:52 EDT [facility] Blood VENOUS BLOOD / Unknown 10/02/2023 9:15 EDT 10/02/2023 21:31 EDT Provider Outr Resulting Lab CHEMISTRY & BLOOD GAS ORDERABLES Performing Organization Address City/[facility]/ZIP Co de Phone Number [facility] [address] [place] [address] * HIV 1/2 ANTIGEN AND ANTIBODY, 4TH GENERATION (10/02/2023 9:15 EDT) HIV 1 and 2 Antibody/p24 Antigen, 4th Generation Negative Negative 10/03/2023 10:06 EDT [facility] Comment:If acute HIV-1 infec tion is suspected in a high risk patient, submit plasma specimen for HIV-1 RNA quantitation test. Blood VENOUS BLOOD / Unknown 10/02/2023 9:15 EDT 10/02/2023 21:31 EDT Narrative [facility] - 10/03/2023 10:06 EDT Fourth Generation assay performed on the Siemens Stackopsaur XPT. Provider Outr Resulting Lab IMMUNOLOGY A ND SEROLOGY ORDERABLES Performing Organization Address City/[facility]/ZIP Co de Phone Number [facility] [address] [place] [address] from Last 3 Months Care Teams Viscose Cellar Charge Hand Relationship Specialty Start Date End Date María Pires MD PCP - General 01/27/11
--- OUTSIDE RECORDS SUMMARY | 2023-12-25 15:11 | XMS_ITS | Encounter Summary ---
Author Organization [facility] Address [address] [place] [address] Care Team Providers Care Compliance Aide Name Role Phone Unavailable Primary Care Provider Unavailabl e Encounter Details Date Type Department Care Team (Late st Contact Info) Description 07/25/2008 Orders Only [facility] Laboratory Services - [facility] ([facility] [address] [place] [id number] Erin López ARNP [address] [place] [address] Social History Tobacco Use Types Packs/Day Years Used Date Smoking Tobacco: Never Assessed Sex and Gender Information Value Date Recorded Sex Assigned at Not on file Gender Identity Not on file Sexual Orientation Not on file documented as of this encounter Plan of Treatment Not on file documented as of this encounter Procedures Procedure Name Priority Date/Time Associated Diagnosis Comments CYTOPATHOLOGY Routine 07/25/2008 0:00 EDT documented in this encounter Results * CYTOPATHOLOGY (07/25/2008 0:00 EDT) Pathology Report: CYTOPATHOLOGY REPORT ? Reports generated via electronic interface contain original data; ? however they are lacking the format of the original report. ? Caution should be taken when reading/interpreti ng unformatted reports. ? Name: ? MUNDO HENNING ? Accession #: ? [id number] ? : ? 1975 (Age: 33) ??F ?Collect Date: ? 07/25/2008 ? Location: ? [facility] ? Receive Date: ? 07/29/2008 ? Provider: ?ERIN SUNSHINE ? Copy to: ? Specimen/Source: ?Pap Test, Vagina/Cervix/Endo cervix, ThinPrep Imaging ? System with manual evaluation ? Last Menstrual Period: ? 1 Week ? Previous Gynecologic Pathology: ? DARYL I ? HPV: + ? SPECIMEN ADEQUACY ? Satisfactory for Evaluation ? - transformation zone component present ? GENERAL CATEGORIZATION ? Negative for Intraepithelial Lesion or Malignancy ? INTERPRETATION ? Fungal organisms present morphologically consistent with Gloria species. ? Document reviewed and electronically signed by: ? Amanda Balieylogg, CT(ASCP) ? Report Date: ??07/31/2008 15:25 ? End of Report ? [facility] 07/25/2008 07/29/2008 Erin SUNSHINE PATHOLOGY ORDERABL ES [facility] [address] [place] [address] documented in this encounter Visit Diagnoses Not on filedocumented in this encounter
--- OUTSIDE RECORDS SUMMARY | 2023-12-25 15:11 | XMS_ITS | Encounter Summary ---
Author Organization [facility] Address [address] [place] [address] Care Team Providers Care Automotive Teacher Name Role Phone María Pires MD Primary Care Provider Sima vailable Reason for Referral * Consult (Routine) - Closed Specialty Diagnoses / Procedures Referred By Contbelidna t Referred To Contact Neurosurgery Diagnoses Kyphosis Mateo See MD [address] [place] [phone] Misael Watson MD [address] [place] [phone] Referral ID Status Reason Start Date Expiration Date V isits Requested Visits Authorized [id number] Closed Specialty Services Required 11/06/2013 1 1 Question Answer Reason for Request: thoracic kyphosis Encounter Details Date Type Department Care Team (Late st Contact Info) Description 11/06/2013 Orders Only [facility] Neurology - [place] [address] [place] [address] Mateo eSe MD [address] [place] [address] Kyphosis (Primary Dx) Social History Tobacco Use Types Packs/Day Years Used Date Smoking Tobacco: Former Cigarettes Q uit: 02/13/2013 Sex and Gender Information Value Date Recorded Sex Assigned at Not on file Gender Identity Not on file Sexual Orientation Not on file documented as of this encounter Plan of Treatment Scheduled Referrals Name Type Priority Associated Diagnoses Order Schedule AMB CONS/FOLLOW UP NEUROSURGERY Outpatient Referral Routine Kyphosis Ordered: 11/06/2013 documented as of this encounter Visit Diagnoses Diagnosis Kyphosis- Primary Kyphosis (acquired) (postural) documented in this encounter Care Teams Automotive Teacher Relationship Specialty Start Date End Date María Pires MD PCP - General 01/27/11 documented as of this encounter
--- OUTSIDE RECORDS SUMMARY | 2023-12-25 15:11 | XMS_ITS | Encounter Summary ---
Author Organization [facility] Address [facility] [place] [address] Care Team Providers Care Ground School Instructor Name Role Phone María Pires MD Primary Care Provider +1- [phone] Encounter Details Date Type Department Care Team (Late st Contact Info) Description 02/13/2013 Orders Only [place] [address] Mann Hernandez MD [facility] [address] Social History Tobacco Use Types Packs/Day Years Used Date Smoking Tobacco: Never Assessed Sex and Gender Information Value Date Recorded Sex Assigned at Not on file Gender Identity Not on file Sexual Orientation Not on file documented as of this encounter Plan of Treatment Pending Results Name Type Priority Associated Diagnoses Date /Time Film Library- Storage only DX Spine Imaging Routine 02/13/2013 5:29 PM EST documented as of this encounter Visit Diagnoses Not on filedocumented in this encounter Care Teams Ground School Instructor Relationship Specialty Start Date End Date María Pires MD [facility] INTERNAL MEDICINE [address] [place] [address] PCP - General 05/03/11 02/25/13 documented as of this encounter
--- OUTSIDE RECORDS SUMMARY | 2023-12-25 15:11 | XMS_ITS | Encounter Summary ---
[place] [address] Care Team Providers Care Repair Department Supervisor Name Role Phone María Laguerre MD Primary Care Provider +1- [phone] Encounter Details Date Type Department Care Team (Latest Contact Info) Description 05/03/2011 1:00 PM EST Procedure [place] [phone] CLINIC, Alissa Alvarez RN Nutcracker esophagus (Primary Dx) Discharge Disposition: Home Social History Tobacco Use Types Packs/Day Years Used Date Smoking Tobacco: Never Assessed Sex and Gender Information Value Date Recorded Sex Assigned at Not on file Gender Identity Not on file Sexual Orientation Not on file documented as of this encounter Progress Notes * Ricky Lugo MD - 05/05/2011 7:40 PM EST ESOPHAGEAL MANOMETRY Lindsey Garland Female, 36 yrs, 1975 PCP: MARÍA LAGUERRE STUDY DATE: 05/03/11 PROVIDER: [place] ([id number]) INDICATION TAYLER symptoms; preoperative evaluation. METHODS Stationary esophageal manometry was performed with the Federated Sample esophageal motility system utilizing the Nanigans software with a 4-channel solid-state motility probe. The transducers are spaced 5 cm apart, and the distal transducer is circumferential, while the proximal three transducers are placed radially above it. Station pull-through technique is utilized to define the lower esophageal sphincter, whose resting tone is determined by the circumferential transducer. Wet swallows are performed in the body of the esophagus with the distal transducer placed 3 and 8 cm above the lower esophageal sphincter zone. The upper esophageal sphincter zone is discerned by station pull-through technique and measured using the circumferential transducer. LES (lower esophageal sphincter) Lower Border: 50 cm Upper Border: 47 cm Mid-Inspiratory Resting Pressure: normal at 26 mmHg using the distal circumferential transducer (normal=13.5-34.5 mmHg). Water Swallows On 5 of 5 swallows the LES relaxed appropriately to gastric baseline. Mean residual LES resting pressure was normal at 4 mmHg (normal less than or equal to 8 mmHg). BODY OF ESOPHAGUS Water Swallows: 12 Peristaltic: 12 Not Transmitted: Simultaneous: * Poorly Propagated: * Mean Amplitude of Contraction At 3 cm above the mid portion of the LES: above normal limits at 191 mmHg (normal = 30 mmHg and above) At 8 cm above the mid portion the LES: normal at 95 mmHg (normal = 30 mmHg and above) UES (upper esophageal sphincter) Identified at 22 cm and extended to 20 cm. UES resting pressure normal at 30 mmHg (normal=30-150 mmHg); relaxation complete. IMPRESSION 1. Normal LES resting pressure. 2. Normal LES relaxation. 3. Normal UES resting pressure. 4. Normal UES relaxation. 5. Nutcracker esophagus given that the mean amplitude of contraction at 3 cm above the mid portion of the LES was above normal limits. OF NOTE, 7 of 12 swallows were greater than 185 mmHg. Ricky Lugo, PhD, MD veterans' counselor Section of Gastroenterology and Hepatology [facility] [place] [address] V: [phone] F: [phone] BEL/laci CC/EC: Misael Villegas MD PCP * Alissa Zarate RN - 05/03/2011 2:18 PM EST Esophageal manometry performed with difficulty accessing esophagus via nares bilaterally. Once esophagus was intubated study went smoothly and was fairly well tolerated. Discharged from lab without voiced concerns. documented in this encounter Plan of Treatment Not on file documented as of this encounter Visit Diagnoses Diagnosis Nutcracker esophagus- Primary Dyskinesia of esophagus documented in this encounter Care Teams Repair Department Supervisor Relationship Specialty Start Date End Date María Laguerre MD [facility] INTERNAL MEDICINE [address] [place] [address] PCP - General 05/03/11 02/25/13 documented as of this encounter
--- OUTSIDE RECORDS SUMMARY | 2023-12-25 15:11 | XMS_ITS | Encounter Summary ---
Author Organization [facility] Address [address] [place] [address] Care Team Providers Care Dungeon Master Name Role Phone María Pires MD Primary Care Provider Sima vailable Encounter Details Date Type Department Care Team (Latest Contact Info) Description 11/05/2013 15:17 EDT - 11/05/2013 23:59 EDT Hospital Encounter [address] [place] [address] Mateo See MD [address] [place] [phone] Discharge Disposition: Home or Self Care Social History Tobacco Use Types Packs/Day Years Used Date Smoking Tobacco: Former Cigarettes Q uit: 02/13/2013 Sex and Gender Information Value Date Recorded Sex Assigned at Not on file Gender Identity Not on file Sexual Orientation Not on file documented as of this encounter Discharge Diagnoses Diagnosis V72.5 RADIOLOGICAL EXAM NEC[ICD-9-CM] documented in this encounter Medications at Time of Discharge Medication Sig Dispensed Refills Start Date End Date diazepam (VALIUM) 10 mg tablet Bring prescription to the MRI appointment. They'll instruct you when to take the med. Do not drive.. 2 Tab 0 10/10/2013 gabapentin (NEURONTIN) 300 mg capsule Take 1 Cap by mouth 3 times daily. 90 Cap 3 09/17/2013 documented as of this encounter Discharge Disposition Disposition Code Departure Means Destination Home or Self Skilled Nursing documented in this encounter Plan of Treatment Not on file documented as of this encounter Visit Diagnoses Not on filedocumented in this encounter Care Teams Dungeon Master Relationship Specialty Start Date End Date María Pires MD PCP - General 01/27/11 documented as of this encounter
--- OUTSIDE RECORDS SUMMARY | 2023-12-25 15:11 | XMS_ITS | Encounter Summary ---
Author Organization [facility] Address [address] [place] [address] Care Team Providers Care Heating Operators Engineer Name Role Phone Unavailable Primary Care Provider Unavailabl e Encounter Details Date Type Department Care Team (Late st Contact Info) Description 11/15/2004 Results Only [facility] - [facility] conversion [address] [place] [address] Samuel Nobles MD [address] [place], [place] [id number] Social History Tobacco Use Types Packs/Day Years Used Date Smoking Tobacco: Never Assessed Sex and Gender Information Value Date Recorded Sex Assigned at Not on file Gender Identity Not on file Sexual Orientation Not on file documented as of this encounter Plan of Treatment Not on file documented as of this encounter Procedures Procedure Name Priority Date/Time Associated Diagnosis Comments SURGICAL PATHOLOGY Routine 11/15/2004 0:00 EDT documented in this encounter Results * SURGICAL PATHOLOGY (11/15/2004 0:00 EDT) Pathology Report: SURGICAL PATHOLOGY REPORT Reports generated via electronic interface contain original data; however they are lacking the format of the original report. Caution should be taken when reading/interpreti ng unformatted reports. Name: ? MUNDO HENNING ? Accession #: ? [id number] ? : ? 1975 (Age: 29) ??F ? Collect Date: ? 11/15/2004 ? Location: ? [facility] ? Receive Date: ? 11/16/2004 ? Provider: SAMUEL NOBLES MD Copy to: ABDOUL SABA MD ? Final Pathologic Diagnosis: A. ?Stomach, antrum, biopsy: 1. ?Antrum-type gastric mucosa with minimal chronic inflammation and changes consistent with reactive (chemical) gastropathy. 2. ?No Helicobacter pylori-like micro-organisms identified on H+E stain. B. ?Gastroesophageal junction, biopsy: 1. ?Mildly hyperplastic squamous mucosa with reactive epithelial changes. ??See comment. 2. ?No dysplasia or tumor identified. C. ?Esophagus, 0.5 cm above GE junction, biopsy: 1. ?Mildly hyperplastic squamous mucosa with reactive epithelial changes. ??See comment. 2. ?No dysplasia or tumor identified. D. ?Esophagus, 1.0 cm above GE junction, biopsy: 1. ?Mildly hyperplastic squamous mucosa with reactive epithelial changes. ??See comment. 2. ?No dysplasia or tumor identified. Comment: ? The changes identified within the esophageal biopsy material could represent (mild) reflux esophagitis. ??Clinical correlation is suggested. ??(Dr. Donald)/b Document reviewed and electronically signed by: MARTHA DONALD MD Report ??Date: 11/17/2004 21:23 By the signature above, the attending physician certifies that he/she has personally conducted a gross and/or microscopic examination of the described specimens and rendered or confirmed the above diagnosis. Specimen(s) Received: A. ?Antrum biopsy (#1) B. ?GE junction (#2) C. ?0.5 cm above GE junction (#3) D. ?1.0 cm above GE junction (#4) Clinical History: ? Epigastric & RUQ pain in a 24 wk preg woman; no or little response to PPI' s Gross Description: ? Received in Hollande' s fixative labelled Ranney and antrum biopsy is an irregular 0.4 x 0.3 x 0.1 cm tavarez-pink soft tissue, submitted in toto as (A). Received in Hollande' s fixative labelled Ranney and GE junction is an irregular 0.2 x 0.1 x less than 0.1 cm tavarez-pink, hemorrhagic soft tissue, submitted in toto as (B). Received in Hollande' s fixative labelled Ranney and 0.5 cm above GE junction is an irregular 0.2 x 0.1 x 0.1 cm tavarez-pink soft tissue, submitted in toto as (C). Received in Hollande' s fixative labelled Ranney and 1.0 cm above GE junction is an irregular 0.4 x 0.2 x less than 0.1 cm tavarez-pink soft tissue, submitted in toto as (D). ??(Tomas Stein)/[facility] End of Report [facility] 11/15/2004 11/16/2004 15: 11 EDT Samuel Nobles MD PATHOLOGY ORDERABLES [facility] [address] [place] [address] documented in this encounter Visit Diagnoses Not on filedocumented in this encounter
--- OUTSIDE RECORDS SUMMARY | 2023-12-25 15:11 | XMS_ITS | Referral Summary ---
Author Organization [facility] Address [address] [place] [address] Care Team Providers Care Seedling Sorter Name Role Phone María Pires MD Primary Care Provider Sima vailable Encounters Date Type Department Care Team Description 10/02/2023 Lab Requisition [facility] Pathology & Laboratory [address] [address] Outr Resulting Lab, Provider 10/02/2023 Lab Requisition [facility] Pathology & Laboratory [facility] [address] [place] [address] Outr Resulting Lab, Provider from Last 3 Months Allergies No known active allergies Medications Medication [...] Date Numbness 09/17/2013 Weakness 09/17/2013 Migraine 09/17/2013 Social History Tobacco Use Types Packs/Day Years [...] Mass Index - - Plan of Treatment Not on file Procedures Procedure Name Priority Date/Time Associated Diagnosis Comments HEPATITIS C AB W REFLEX TO HCV RNA BY PCR Routine 10/02/2023 9:15 EDT HIV 1/2 ANTIGEN AND ANTIBODY, 4TH GENERATION Routine 10/02/2023 9:15 EDT from Last 3 Months Results * HEPATITIS C AB W REFLEX TO HCV RNA BY PCR (10/02/2023 9:15 EDT) Hep C Antibody Negative Negative 10/03/2023 9:52 EDT [facility] Blood VENOUS BLOOD / Unknown 10/02/2023 9:15 EDT 10/02/2023 21:31 EDT Provider Outr Resulting Lab CHEMISTRY & BLOOD GAS ORDERABLES Performing Organization Address [facility] de Phone Number [facility] [address] [place] [phone] * HIV 1/2 ANTIGEN AND ANTIBODY, 4TH GENERATION (10/02/2023 9:15 EDT) HIV 1 and 2 Antibody/p24 Antigen, 4th Generation Negative Negative 10/03/2023 10:06 EDT [facility] Comment:If acute HIV-1 infec tion is suspected in a high risk patient, submit plasma specimen for HIV-1 RNA quantitation test. Blood VENOUS BLOOD / Unknown 10/02/2023 9:15 EDT 10/02/2023 21:31 EDT Narrative [facility] - 10/03/2023 10:06 EDT Fourth Generation assay performed on the Siemens Centaur XPT. Provider Outr Resulting Lab IMMUNOLOGY A ND SEROLOGY ORDERABLES Performing Organization Address City/[facility]/ZIP Co de Phone Number [facility] [address] [place], [place] [id number] from Last 3 Months Care Teams Seedling Sorter Relationship Specialty Start Date End Date María Pires MD PCP - General 01/27/11
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
--- OUTSIDE RECORDS SUMMARY | 2023-12-25 15:11 | XMS_ITS | Encounter Summary ---
Author Organization [facility] Address [facility] [place] [address] Care Team Providers Care Director Stars Name Role Phone Unknown Primary Care Provider Unavailabl e Encounter Details Date Type Department Care Team (Late st Contact Info) Description 01/17/2005 [place] [address] Matt Person MD [facility] PEDIATRICS/[place] [address] Social History Tobacco Use Types Packs/Day Years Used Date Smoking Tobacco: Never Assessed Sex and Gender Information Value Date Recorded Sex Assigned at Not on file Gender Identity Not on file Sexual Orientation Not on file documented as of this encounter Plan of Treatment Not on file documented as of this encounter Procedures Procedure Name Priority Date/Time Associated Diagnosis Comments SURGICAL PATHOLOGY REPORT Routine 01/17/2005 1:20 PM EDT documented in this encounter Results * Surgical Pathology Report (01/17/2005 1:20 PM EDT) Surgical Pathology Report [id number] ? Location: The signing pathologist has (i) examined the relevant preparation(s) for the specimen(s) and (ii) rendered or confirmed the diagnosis(es). . ?Pathology Surgical Pathology Final Report Clinical Information Specimen Submitted: A - 32 5/7 weeks female. Clinical History: Clinical Diagnosis: R/O chorioamnionitis. Gross Description Labeled/Fixative: ? Placenta and cord, formalin. Qty/Size/Weight: ?16.0 x 15.0 x 2.7 cm, 418 g. Tissue Description: ?? Jones discoid placenta. ?? Membranes: ? Peripherally attached, semitranslucent, pink-tavarez, ?100% marginal insertion. ??The site of rupture is at ?the periphery. ?? Cord: ?28.0 x 1.2 cm; three vessels; paracentral insertion. ?Minimally spiraled. ?? Surface: ? Glistening, tavarez-purple, displaying numerous congested ?vessels. ?? Maternal Surface: ??Focally torn and disrupted, and the true completeness ?of the placenta cannot be readily determined. ??There ?is a minimal amount of peripheral, loosely attached, ?old, red-brown blood clot. ?? Parenchyma: ?The specimen is serially sectioned at 0.5-cm to ?1.0-cm intervals. ??Sections show a predominantly homogeneous, red-brown, spongy parenchyma with several superficial peripheral areas of firm, yellow-tavarez parenchyma, measuring up to 1.6 cm in diameter. ??These areas represent less than 5% of the parenchyma grossly. ??The remaining parenchyma is unremarkable. Sections/Processing : ??Sections are submitted as follows: ??(1) umbilical ?cord and rolled membrane; (2) surface; (3) ?maternal surface; (4) superficial maternal surface ?lesions. ??(R4) ??aje/EJR Microscopic Description Slides reviewed, microscopic description not recorded. Diagnosis placenta, cord and membranes: Immature placenta, negative for chorioamnionitis and funisitis. Small feto-maternal hemorrhage present. CR-0 01/18/05 KO 01/18/05 Verified by: ? Matilda Zelaya MD ?Pathologist ?(Electronic Signature) The attending pathologist whose signature appears on this report has reviewed all diagnostic slides and has edited the gross and/or microscopic portion of the report in rendering the final pathologic diagnosis. CJ LIPSCOMB 01/17/2005 1:20 PM EDT Matt Person MD PATHOLOGY/CYTOLOGY Héctor VALENZUELA Performing Organization Address City/State/[facility] Co de Phone Number CJ LIPSCOMB documented in this encounter Visit Diagnoses Not on filedocumented in this encounter Care Teams Director Stars Relationship Specialty Start Date End Date Unknown None PCP - General 06/14/13 documented as of this encounter
--- OUTSIDE RECORDS SUMMARY | 2023-12-25 15:11 | XMS_ITS | Encounter Summary ---
Author Organization [facility] Address [address] [place] [address] Care Team Providers Care Dining Room Busser Name Role Phone María Pires MD Primary Care Provider Sima vailable Reason for Visit * Reason Onset Date Comments Medications Refill 10/10/2013 Encounter Details Date Type Department Care Team (Late st Contact Info) Description 10/10/2013 Refill [facility] Neurology [facility] [address], [place] [id number] Mateo See MD [address] [place] [phone] Medications Refill Social History Tobacco Use Types Packs/Day Years Used Date Smoking Tobacco: Former Cigarettes Q uit: 02/13/2013 Sex and Gender Information Value Date Recorded Sex Assigned at Not on file Gender Identity Not on file Sexual Orientation Not on file documented as of this encounter Ordered Prescriptions Prescription Sig Dispensed Refills Start Date End Da te diazepam (VALIUM) 10 mg tablet Bring prescription to the MRI appointment. They'll instruct you when to take the med. Do not drive.. 2 Tab 0 10/10/2013 documented in this encounter Plan of Treatment Not on file documented as of this encounter Visit Diagnoses Not on filedocumented in this encounter Care Teams Dining Room Busser Relationship Specialty Start Date End Date María Pires MD PCP - General 01/27/11 documented as of this encounter
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
--- OUTSIDE RECORDS SUMMARY | 2023-12-25 15:11 | XMS_ITS | Encounter Summary ---
Author Organization [facility] Address [facility] [place] [address] Care Team Providers Care Case Managers Name Role Phone María Pires MD Primary Care Provider [phone] Encounter Details Date Type Department Care Team (Late st Contact Info) Description 02/13/2013 Orders Only [facility] [place] [address] Mann Hernandez MD [facility] [place] [address] Social History Tobacco Use Types Packs/Day Years Used Date Smoking Tobacco: Never Assessed Sex and Gender Information Value Date Recorded Sex Assigned at Not on file Gender Identity Not on file Sexual Orientation Not on file documented as of this encounter Plan of Treatment Not on file documented as of this encounter Visit Diagnoses Not on filedocumented in this encounter Care Teams Case Managers Relationship Specialty Start Date End Date María Pires MD [facility] INTERNAL MEDIC[facility] [address] [place] [id number] PCP - General 05/03/11 02/25/13 documented as of this encounter
== END 2023-12-25 14:50 | disposition home or self-care (01) ==
LOC: LBN 14:49
PROVIDERS: PCP Nurse Practitioner Family; Visit Provider Nurse Practitioner Family
DX: Z01.419 Encounter for gynecological examination (general) (routine) without abnormal findings (principal)
CPT/HCPCS: 88142; 87624